=== PATIENT | male | born 1950 | race Caucasian/White ===

== ENCOUNTER 2016-09-02 10:42 | Emergency (ER) | payer SELFPAY ==
--- NOTE | 2016-09-02 11:46 | ER Document Report ---
ED Medical Screen (RME) - General Stated Complaint: BLACK URINE Mode of Arrival: Ambulatory Information source: Patient Notes: 66 y/o M presents to ED c/o dark urine since this morning. Reports has had intermittent headache over the last 3 weeks otherwise denies any other complaints. I have greeted and performed a rapid initial assessment of this patient. A comprehensive ED assessment and evaluation of the patient, analysis of test results and completion of the medical decision making process will be conducted by additional ED providers. TRAVEL OUTSIDE OF THE [place] IN LAST 30 DAYS: No - Related Data Allergies/Adverse Reactions: No Known Allergies Allergy (Unverified 10/25/11 13:43) Past Medical History Endocrine Medical History: Reports: Hx Diabetes Mellitus Type 2 Traumatic Medical History: Reports: Hx Traumatic Brain Injury - Immunizations Hx Diphtheria, Pertussis, Tetanus Vaccination: Yes Physical Exam - Vital signs Vitals: Temp Pulse Resp BP Pulse Ox 97.7 F 79 18 156/72 H 98 09/02/16 11:35 09/02/16 11:35 09/02/16 11:35 09/02/16 11:35 09/02/16 11:35 - General General appearance: Appears well, Alert In distress: None - Respiratory Respiratory status: No respiratory distress Course - Vital Signs Vital signs: Temp Pulse Resp BP Pulse Ox 97.7 F 79 18 156/72 H 98 09/02/16 11:35 09/02/16 11:35 09/02/16 11:35 09/02/16 11:35 09/02/16 11:35
[2016-09-02 12:40] LABS: HEMATOCRIT 47.4 % (37.9-51.0); HEMOGLOBIN 15.9 g/dL (13.5-17.0); HGB HCT DIFFERENCE 0.3; MEAN CORPUSCULAR HEMOGLOBIN 30.2 pg (27.0-33.4); MEAN CORPUSCULAR HGB CONC 33.6 g/dL (32.0-36.0); MEAN CORPUSCULAR VOLUME 90 fl (80-97); RED BLOOD COUNT 5.29 10^6/uL (4.35-5.55); RED CELL DISTRIBUTION WIDTH 14.6 % (11.5-14.0); WHITE BLOOD COUNT 23.6 10^3/uL (4.0-10.5)
[2016-09-02 12:59] LABS: ALANINE AMINOTRANSFERASE 32 U/L (21-72); ALKALINE PHOSPHATASE 79 U/L (38-126); ANION GAP 12 (5-19); ASPARTATE AMINO TRANSFERASE 25 U/L (17-59); BILIRUBIN,TOTAL 0.8 mg/dL (0.2-1.3); BLOOD UREA NITROGEN 23 mg/dL (7-20); CALCIUM 10.3 mg/dL (8.4-10.2); CARBON DIOXIDE 28 mmol/L (22-30); CHLORIDE 103 mmol/L (98-107); CREATININE RESULT 1.15 mg/dL (0.52-1.25); GLUCOSE 92 mg/dL (75-110); POTASSIUM 4.6 mmol/L (3.6-5.0); SODIUM 143.4 mmol/L (137-145); TOTAL PROTEIN 8.2 g/dL (6.3-8.2)
[2016-09-02 13:21] LABS: BAND NEUTROPHILS % (MANUAL) 1 % (3-5); BASOPHILS % (MANUAL) 0 % (0-2); EOSINOPHILS % (MANUAL) 0 % (0-6); LYMPHOCYTES % (MANUAL) 59 % (13-45); TOTAL CELLS COUNTED 100
[2016-09-02 13:22] LABS: POLYCHROMASIA SLIGHT; TOXIC GRANULATION SLIGHT; TOXIC VACUOLATION PRESENT
[2016-09-02 13:32] LABS: APPEARANCE,URINE CLEAR; BILIRUBIN,URINE NEGATIVE (NEGATIVE); GLUCOSE, URINE NEGATIVE (NEGATIVE); KETONES,URINE NEGATIVE (NEGATIVE); LEUKOCYTE ESTERASE,URINE NEGATIVE (NEGATIVE); NITRITE,URINE NEGATIVE (NEGATIVE); PROTEIN,URINE 100 mg/dL (NEGATIVE); URINE SPECIFIC GRAVITY 1.013; UROBILINOGEN,URINE NEGATIVE mg/dL (<2.0)
--- NOTE | 2016-09-02 15:52 | ER Document Report ---
ED General - General Chief Complaint: Urinary Problem Stated Complaint: BLACK URINE Mode of Arrival: Ambulatory Information source: Patient Notes: This is a 66-year-old male with a history of diabetes who presents to the ER for evaluation this morning after noticing that his urine is very dark, almost black in color. he states that his urine was normal yesterday. When he gave a urine sample here in the ER he states that the color was manager psychology and was a red tinge now not as black. Of note this is never happened before and he is not on any anticoagulant medications. He denies any dysuria. He has not had any abdominal or flank pain. He denies any fevers chills or recent illnesses. TRAVEL OUTSIDE OF THE [place] IN LAST 30 DAYS: No - Related Data Allergies/Adverse Reactions: No Known Allergies Allergy (Verified 09/02/16 11:47) Past Medical History - General Information source: Patient - Social History Smoking Status: Current Every Day Smoker Chew tobacco use (# tins/day): No Frequency of alcohol use: None Drug Abuse: None Family History: Reviewed & Not Pertinent Patient has suicidal ideation: No Patient has homicidal ideation: No Endocrine Medical History: Reports: Hx Diabetes Mellitus Type 2 Renal/ Medical History: Denies: Hx Peritoneal Dialysis Traumatic Medical History: Reports: Hx Traumatic Brain Injury Past Surgical History: Reports: Hx Appendectomy - Immunizations Hx Diphtheria, Pertussis, Tetanus Vaccination: Yes Review of Systems - Review of Systems Notes: REVIEW OF SYSTEMS: CONSTITUTIONAL : Denies fever, chills, or sweats. Denies recent illness. EENT: Denies eye, ear, throat, or mouth pain or symptoms. Denies nasal or sinus congestion. CARDIOVASCULAR: Denies chest pain. RESPIRATORY: Denies cough, cold, or chest congestion. Denies shortness of breath, difficulty breathing, or wheezing. GASTROINTESTINAL: Denies abdominal pain. Denies nausea, vomiting, or diarrhea. Denies constipation. Last BM: GENITOURINARY: As per history of present illness MUSCULOSKELETAL: Denies neck or back pain or joint pain or swelling. SKIN: Denies rash or skin lesions. HEMATOLOGIC : Denies easy bruising or bleeding. LYMPHATIC: Denies swollen, enlarged glands. NEUROLOGICAL: Denies altered mental status or loss of consciousness. Reports a sinus headache for the past 3 weeks which he states he usually gets at change of season. PSYCHIATRIC: Denies anxiety or stress or depression. ALL OTHER SYSTEMS REVIEWED AND NEGATIVE. Physical Exam - Vital signs Vitals: Temp Pulse Resp BP Pulse Ox 97.7 F 79 18 156/72 H 98 09/02/16 11:35 09/02/16 11:35 09/02/16 11:35 09/02/16 11:35 09/02/16 11:35 - Notes Notes: PHYSICAL EXAMINATION: GENERAL: Well-appearing, well-nourished and in no acute distress. Very pleasant and conversant. HEAD: Atraumatic, normocephalic. EYES: Pupils equal round and reactive to light, extraocular movements intact, sclera anicteric, conjunctiva are normal. ENT: nares patent, oropharynx clear without exudates. Moist mucous membranes. NECK: Normal range of motion, supple without lymphadenopathy LUNGS: Breath sounds clear to auscultation bilaterally and equal. No wheezes rales or rhonchi. HEART: Regular rate and rhythm without murmurs ABDOMEN: Soft, nontender, normoactive bowel sounds. No guarding, no rebound. No masses appreciated. EXTREMITIES: Normal range of motion, no pitting or edema. NEUROLOGICAL: Cranial nerves grossly intact. Normal speech. Motor strength 5 over 5 bilateral upper and lower extremity. Sensation intact. PSYCH: Normal mood, normal affect. SKIN: Warm, Dry, normal turgor, no rashes or lesions noted. Course - Re-evaluation Re-evalutation: 09/02/16 15:52 Patient has remained comfortable and pleasant in the emergency department. We discussed the CT results and the fact that there is no kidney stone. At this point with the leukocytosis and the urine results we'll treat him for hemorrhagic cystitis with antibiotics. He is to follow-up with his primary care physician. We discussed drinking plenty of fluids and return to the ER for any high fevers, persistent vomiting, worsening symptoms or concerns. He is very comfortable with this plan. - Vital Signs Vital signs: Temp Pulse Resp BP Pulse Ox 98.2 F 66 20 157/69 H 98 09/02/16 17:47 09/02/16 17:47 09/02/16 17:47 09/02/16 17:47 09/02/16 17:47 - Laboratory Result Diagrams: 09/02/16 12:16 09/02/16 12:16 Laboratory results interpreted by me: 09/02/16 09/02/16 09/02/16 12:16 12:16 12:16 WBC 23.6 H RDW 14.6 H Seg Neuts % (Manual) 38 L Band Neutrophils % 1 L Lymphocytes % (Manual) 59 H Monocytes % (Manual) 1 L Abs Neuts (Manual) 9.2 H Abs Lymphs (Manual) 14.2 H BUN 23 H Calcium 10.3 H Creatine Kinase Urine Protein 100 H Urine Blood LARGE H 09/02/16 12:16 WBC RDW Seg Neuts % (Manual) Band Neutrophils % Lymphocytes % (Manual) Monocytes % (Manual) Abs Neuts (Manual) Abs Lymphs (Manual) BUN Calcium Creatine Kinase 41 L Urine Protein Urine Blood Discharge - Discharge Clinical Impression: Hemorrhagic cystitis Leukocytosis Qualifiers: Leukocytosis type: unspecified Qualified Code(s): D72.829 - Elevated white blood cell count, unspecified Condition: Stable Disposition: HOME, SELF-CARE Additional Instructions: URINARY TRACT INFECTION: Your evaluation indicates that you have a urinary tract infection. This is due to germs growing in the bladder. This is a common problem. This infection usually responds quickly to antibiotics. Your antibiotic should be taken exactly as prescribed. Drink plenty of fluids -- three to four quarts a day. Occasionally, a bladder anesthetic will be prescribed to help stop the feeling of urgency until the antibiotic has a chance to clear the infection. This may cause your urine to be dark orange. Certain urine infections require a culture. If the doctor obtained a culture, the results will be back in two days. You should call to see if a change in treatment is needed. A repeat urinalysis after you finish treatment is often recommended. The physician will let you know if further testing is required. Call the doctor if you develop fever, chills, flank pain, inability to urinate, or blood in the urine. ANTIBIOTIC THERAPY: You have been given an antibiotic prescription. It's important that you take all the medication, unless instructed otherwise by your physician. Failure to complete the entire course can result in relapse of your condition. Common side effects of antibiotics include nausea, intestinal cramping, or diarrhea. Women may develop vaginal yeast infections, and babies can get yeast (thrush) in the mouth following the use of antibiotics. Contact your physician if you develop significant side effects from this medication. Allergy to this antibiotic can result in hives, wheezing, faintness, or itching. If symptoms of allergy occur, stop the medication and call the doctor. LEVOFLOXACIN: You have been given an antibacterial agent, levofloxacin (Levaquin). This medicine is not related to the penicillins, sulfas, cephalosporins, or tetracyclines. It is often given to patients who are allergic to these drugs. It has been chosen for you either because other drugs are not appropriate, or because of the nature of your problem. Levaquin should not be taken with antacids, as these can decrease its effectiveness. It can be taken without regard to meals. LEVAQUIN SHOULD NOT BE TAKEN BY CHILDREN, NURSING WOMEN, OR WOMEN. Although Levaquin is usually well-tolerated, common side effects can include nausea and diarrhea. Contact your doctor if you experience any unusual symptoms while on this medication, such as joint pain or swelling, shortness of breath, wheezing, faintness, or hives. FOLLOW-UP CARE: If you have been referred to a physician for follow-up care, call the physician s office for an appointment as you were instructed or within the next two days. If you experience worsening or a significant change in your symptoms, notify the physician immediately or return to the Emergency Department at any time for re-evaluation. Taking your antibiotics until they are all gone. Return to the emergency Department for fever greater than 100.4 or any worsening symptoms or concerns. It is important he follow-up with her primary care physician in one week. Prescriptions: Levofloxacin [Levaquin 750 mg Tablet] 750 mg PO DAILY #5 tablet
[2016-09-02] MEDS ORDERED: ACETAMINOPHEN 325 MG TABLET PO ONE (15:57)
[2016-09-02] MEDS ORDERED: LEVOFLOXACIN 750 MG TABLET PO ONE (17:25)
[2016-09-02 17:49] VITALS: BP 157/69
== END 2016-09-02 17:47 | disposition home or self-care (01) ==
LOC: ER 10:42
DX: N30.90 Cystitis, unspecified without hematuria (principal); D72.829 Elevated white blood cell count, unspecified; F17.200 Nicotine dependence, unspecified, uncomplicated; E11.9 Type 2 diabetes mellitus without complications; Z87.820 Personal history of traumatic brain injury
CPT/HCPCS: 36415; 76380; 80053; 81001; 82550; 85025; 99284

== ENCOUNTER 2016-09-23 17:26 | Inpatient (IN) | payer SELFPAY ==
--- NOTE | 2016-09-23 17:35 | ER Document Report ---
ED Neuro Symptoms/Deficit - General Chief Complaint: S/S of Possible Stroke Stated Complaint: STROKE LIKE SYMPTOMS Notes: The patient is a 66-year-old male, past medical history "possible leukemia" ( never followed up with Oncology when told 2 years ago), presents with confusion and arm weakness that started when he woke up this morning. He is also having difficulty swallowing. Last night, when he went to bed at 2200, he was alert and had no symptoms. His daughter called EMS and patient was brought to the emergency room for concern about stroke. Patient states he has a dull frontal headache for the past several weeks, but denies blurry vision, numbness, tingling, fevers, neck stiffness, chest pain, shortness of breath or ataxia. TRAVEL OUTSIDE OF THE [place] IN LAST 30 DAYS: No - Related Data Allergies/Adverse Reactions: No Known Allergies Allergy (Verified 09/02/16 11:47) Past Medical History - General Information source: Patient, Relative - Daughter, Emergency Med Personnel - Social History Smoking Status: Current Every Day Smoker Family History: Reviewed & Not Pertinent Endocrine Medical History: Reports: Hx Diabetes Mellitus Type 2 Renal/ Medical History: Denies: Hx Peritoneal Dialysis Traumatic Medical History: Reports: Hx Traumatic Brain Injury Past Surgical History: Reports: Hx Appendectomy - Immunizations Hx Diphtheria, Pertussis, Tetanus Vaccination: Yes Review of Systems - Review of Systems Notes: REVIEW OF SYSTEMS: CONSTITUTIONAL: -fevers, -chills EENT: -eye pain, +difficulty swallowing, -nasal congestion CARDIOVASCULAR: -chest pain, -syncope. RESPIRATORY: -cough, -SOB GASTROINTESTINAL: -abdominal pain, - nausea, -vomiting, -diarrhea GENITOURINARY: -dysuria, -hematuria MUSCULOSKELETAL: -back pain, -neck pain SKIN: -rash or skin lesions. HEMATOLOGIC: -easy bruising or bleeding. LYMPHATIC: -swollen, enlarged glands. NEUROLOGICAL: +confusion, +B/L arm and leg weakness, -numbness PSYCHIATRIC: -anxiety, -depression. ALL OTHER SYSTEMS REVIEWED AND NEGATIVE. Physical Exam - Vital signs Vitals: Resp Pulse Ox 25 H 93 09/23/16 17:54 09/23/16 17:54 - Notes Notes: PHYSICAL EXAMINATION: GENERAL: Well-appearing, well-nourished and in no acute distress. HEAD: Atraumatic, normocephalic. EYES: Pupils equal round and reactive to light, extraocular movements intact, sclera anicteric, conjunctiva are normal. ENT: nares patent, oropharynx clear without exudates. Moist mucous membranes. NECK: Normal range of motion, supple without lymphadenopathy, no neck stiffness LUNGS: Breath sounds clear to auscultation bilaterally and equal. No wheezes rales or rhonchi. HEART: Regular rate and rhythm without murmurs ABDOMEN: Soft, nontender, normoactive bowel sounds. No guarding, no rebound. No masses appreciated. EXTREMITIES: Normal range of motion, no pitting or edema. No cyanosis. NEUROLOGICAL: Cranial nerves grossly intact. Normal speech, slow to respond. Cannot answer current month or current age. 4/5 strength in all 4 extremities. No sensory changes. SKIN: Warm, Dry, normal turgor, no rashes or lesions noted. Course - Re-evaluation Re-evalutation: Patient with acute change in mental status that started 20 hours prior to arrival. Patient activated as a stroke alert by EMS. On arrival to the emergency room, he went immediately to CAT scan, which did not show a bleed. Labs show a leukocytosis with 38 WBCs, which is higher than his prior values. Chest x-ray and urinalysis do not show any evidence for infection. Abdomen is soft and nontender. LP completed for concern about meningitis. Patient does not appear toxic to suggest bacterial meningitis, but viral meningitis is still a possibility. Viral panel from CSF sent. Patient has no prior psych disorder and he is independent at baseline. If this is a CVA, patient's NIH stroke scale is 7 and ABCD2 score is 4. ASA given. Pt will require admission for further evaluation and treatment of his leukocytosis and acute altered mental status with diffuse weakness. 09/23/16 23:[address] Chey Roth about leukocytosis and possibility of acute leukemia, but she says this is is likely related to CLL and does not require any acute treatment at this time. Spoke to Dr. Ortiz and he will see patient. - Vital Signs Vital signs: Temp Pulse Resp BP Pulse Ox 98.2 F 67 18 187/99 H 93 09/23/16 23:21 09/23/16 21:45 09/23/16 22:01 09/23/16 22:01 09/23/16 22:01 - Laboratory Result Diagrams: 09/23/16 17:45 09/23/16 18:49 Laboratory results interpreted by me: 09/23/16 09/23/16 09/23/16 17:45 18:49 19:30 WBC 38.5 H* RBC 5.65 H RDW 14.3 H Band Neutrophils % 2 L Lymphocytes % (Manual) 46 H Abs Neuts (Manual) 19.3 H Abs Lymphs (Manual) 17.7 H Abs Monocytes (Manual) 1.5 H BUN 28 H Glucose 125 H Creatine Kinase 49 L Urine Protein 100 H CSF Glucose 09/23/16 21:38 WBC RBC RDW Band Neutrophils % Lymphocytes % (Manual) Abs Neuts (Manual) Abs Lymphs (Manual) Abs Monocytes (Manual) BUN Glucose Creatine Kinase Urine Protein CSF Glucose 81 H - Diagnostic Test Radiology reviewed: Image reviewed, Reports reviewed Radiology results interpreted by me: CXR: NAD Procedures - Lumbar Puncture Lumbar puncture Consent obtained: Yes - From Daughter (POA) Lumbar puncture pre-procedure: Sterile PPE donned, Betadine prep applied, Chloraprep applied, Sterile drapes applied Patient position: Sitting Needle size: 18 Lumbar puncture location: L4-L5 Anesthetic type: 1% Lidocaine mL's of anesthetic: 5 Amount/type of drainage: 4, clear fluid Number of attempts: 3 Complications: No Critical Care Note - Critical Care Note Total time excluding time spent on procedures (mins): 65 Discharge - Discharge Clinical Impression: Altered mental status Qualifiers: Altered mental status type: disorientation Qualified Code(s): R41.0 - Disorientation, unspecified TIA (transient ischemic attack) Qualifiers: Transient cerebral ischemia type: unspecified Qualified Code(s): G45.9 - Transient cerebral ischemic attack, unspecified Condition: Stable Disposition: ADMITTED INPATIENT Admitting Provider: [facility] Unit Admitted: [facility]
--- NOTE | 2016-09-23 18:33 | ER Document Report ---
ED NIH Stroke Scale - NIH Stroke Scale When completed:: Before Alteplase *: 1. NIH scale should be completed with appropriate accompanying assessment tools. *: 2. The NIH should reflect what the patient is capable of doing and should not be coached by the clinician. 1a. Level of Consciousness: 0=Alert;keenly responsive -: 1=Drowsy -: 2=Obtunded -: 3=Coma/unresponsive or reflex to noxious stimuli. 1a. Responses: 0 1b. Orientation Questions: a. What month is it? -: b. How old are you? -: 0=Answers both questions correctly. -: 1=Answers one question correctly or patient is intubated or has orotracheal trauma. -: 2=Answers neither question correctly. 1b. Responses: 2 1c. Response to commands: a. Open and close eyes? -: b. Cigar Packing Examiner and release hand? -: Credit is given despite weakness. Demonstration of task is permitted. Substitute command if hands cannot be used. -: 0=Performs both tasks correctly -: 1=Performs one task correctly -: 2=Performs neither task correctly 1c. Responses: 0 2. Gaze: Establish eye contact and instruct patient to "Follow my finger" -: 0=Normal -: 1=Partial gaze palsy. Gaze is abnormal in one or both eyes, but where forced deviation or total gaze paresis is not present. -: 2=Forced deviation or total gaze paresis. 2. Responses: 0 3. Visual Chamberlain: Sees fingers in all four quadrants. -: 0=No visual loss. -: 1=Partial hemianopsia. -: 2=Complete hemianopsia. -: 3=Bilateral hemianopsia (including Cortical blindness) 3. Responses: 0 4. Facial Movement: Instruct patient to: -: a. Show me your teeth -: b. Raise your eyebrows -: c. Close your eyes -: d. Smile -: 0=Normal symmetrical movement -: 1=Minor paralysis (flattened nasolabial fold, asymmetry on smiling). -: 2=Partial paralysis (total or near total paralysis of lower face). -: 3=Complete paralysis of upper and lower face 4. Responses: 0 5. Motor functions (left arm): Alternate sides and extend each arm with palms down (90 degrees if sitting or 45 degrees for supine). -: 0=No drift;limb holds for full 10 seconds. -: 1=Drift; limb holds but drifts down before full 10 seconds, but does not hit bed. -: 2=Some effort against gravity; limb cannot get to or maintain position. -: 3=No effort against gravity; limb falls. -: 4=No movement. -: UN=Amputation, joint fusion, explain in comments. 5. Responses (left arm): 1 5. Motor Functions (right arm): Alternate sides and extend each arm with palms down (90 degrees if sitting or 45 degrees for supine). -: 0=No drift;limb holds for full 10 seconds. -: 1=Drift; limb holds but drifts down before full 10 seconds, but does not hit bed. -: 2=Some effort against gravity; limb cannot get to or maintain position. -: 3=No effort against gravity; limb falls. -: 4=No movement. -: UN=Amputation, joint fusion, explain in comments. 5. Responses (right arm): 1 6. Motor Functions (left leg): With patient lying supine, alternate sides and extend each leg (30 degrees always while supine). -: 0=No drift, leg holds position for full 5 seconds -: 1=Drift; leg falls before full 5 seconds but does not hit bed. -: 2=Some effort against gravity, leg falls to bed but some effort against gravity. -: 3=No effort against gravity, leg falls to bed immediately. -: 4=No movement. -: UN=Amputation, joint fusion; explain in comments. 6. Responses (left leg): 1 6. Motor Functions (right leg): With patient lying supine, alternate sides and extend each leg (30 degrees always while supine). -: 0=No drift, leg holds position for full 5 seconds -: 1=Drift; leg falls before full 5 seconds but does not hit bed. -: 2=Some effort against gravity, leg falls to bed but some effort against gravity. -: 3=No effort against gravity, leg falls to bed immediately. -: 4=No movement. -: UN=Amputation, joint fusion; explain in comments. 6. Responses (right leg): 1 7. Limb Ataxia: With eyes open instruct patient to: -: a. "Touch your finger to your nose". -: b. "Touch your heel to your bryson" -: 0=Absent -: 1=Present in one limb. -: 2=Present in two limbs. -: UN=Amputation or joint fusion; explain in comments. 7. Responses: 0 8. Sensory: Test sensation using pinprick or noxious stimuli. Test as many body parts as possible. -: 0=Normal;no sensory loss -: 1=Mile to moderate sensory loss (patient feels pin prick but is less sharp on affected side). -: 2=Severe or total sensory loss. 8. Responses: 0 9. Best Language: Instruct patient to: -: a. "Describe what you see in this picture." -: b. "Name the items in this picture." -: c. "Read these sentences." -: 0=No aphasia, normal -: 1=Mild to moderate aphasia. -: 2=Severe aphasia -: 3=Mute, global aphasia, no usable speech or auditory comprehension. 9. Responses: 0 10. Articulation, Dysarthia: Instruct patient to: -: "Read these words" or "Repeat these words" -: 0=Normal -: 1=Mild to moderate; patient may slur some words but can be understood without difficulty. -: 2=Severe; patients speech so slurred as to be unintelligible in the absence of dysphasia. -: UN=Intubated or other physical barrier, explain in comments. 10. Responses: 0 11. Extinction or inattention: 0=No abnormality -: 1= Visual, tactile, auditory, spatial, or personal inattention or extinction to bilateral simulation in one or the sensory modalities. -: 2=Profound mirlande-inattention or mirlande-inattention to more than one modality; does not recognize own hand. 11. Responses: 1 Total Score: 7
[2016-09-23 18:51] LABS: PROTHROMBIN TIME 13.2 SEC (11.4-15.4)
[2016-09-23 18:57] LABS: HEMATOCRIT 49.8 % (37.9-51.0); HEMOGLOBIN 16.7 g/dL (13.5-17.0); HGB HCT DIFFERENCE 0.3; MEAN CORPUSCULAR HEMOGLOBIN 29.5 pg (27.0-33.4); MEAN CORPUSCULAR HGB CONC 33.5 g/dL (32.0-36.0); MEAN CORPUSCULAR VOLUME 88 fl (80-97); RED BLOOD COUNT 5.65 10^6/uL (4.35-5.55); RED CELL DISTRIBUTION WIDTH 14.3 % (11.5-14.0)
[2016-09-23] MEDS ORDERED: NORMAL SALINE 1000 ML 1,000 ML IV ONE (19:01)
[2016-09-23] MEDS ORDERED: KETOROLAC TROMETHAMINE INJ/PF 30 MG/1 ML SDV IV ONE (19:01)
[2016-09-23 19:14] LABS: BAND NEUTROPHILS % (MANUAL) 2 % (3-5); BASOPHILS % (MANUAL) 0 % (0-2); EOSINOPHILS % (MANUAL) 0 % (0-6); LYMPHOCYTES % (MANUAL) 46 % (13-45); TOTAL CELLS COUNTED 100
[2016-09-23 19:15] LABS: RBC MORPHOLOGY COMMENT NORMO-CYTIC/CHROMIC
[2016-09-23 19:18] LABS: WHITE BLOOD COUNT 38.5 10^3/uL (4.0-10.5)
[2016-09-23 19:18] LABS: ANION GAP 14 (5-19); BLOOD UREA NITROGEN 28 mg/dL (7-20); CALCIUM 10.1 mg/dL (8.4-10.2); CARBON DIOXIDE 26 mmol/L (22-30); CHLORIDE 99 mmol/L (98-107); CREATINE KINASE 49 U/L (55-170); CREATININE RESULT 1.08 mg/dL (0.52-1.25); GLUCOSE 125 mg/dL (75-110); POTASSIUM 4.3 mmol/L (3.6-5.0)
[2016-09-23 20:56] LABS: AMORPHOUS SEDIMENT,URINE TRACE /HPF; APPEARANCE,URINE CLOUDY; BILIRUBIN,URINE NEGATIVE (NEGATIVE); GLUCOSE, URINE NEGATIVE (NEGATIVE); KETONES,URINE NEGATIVE (NEGATIVE); LEUKOCYTE ESTERASE,URINE NEGATIVE (NEGATIVE); NITRITE,URINE NEGATIVE (NEGATIVE); PROTEIN,URINE 100 mg/dL (NEGATIVE); UROBILINOGEN,URINE NEGATIVE mg/dL (<2.0)
--- NOTE | 2016-09-23 21:36 | EKG REPORT ---
SEVERITY:- ABNORMAL ECG - SINUS RHYTHM LEFT ATRIAL ABNORMALITY : Confirmed by: Samanta Sneed 23-Sep-2016 21:35:51
[2016-09-23] MEDS ORDERED: ONDANSETRON HCL INJ/PF 4 MG/2 ML SDV ONE (22:08)
[2016-09-23] MEDS ORDERED: ONDANSETRON HCL INJ/PF 4 MG/2 ML SDV IV ONE (22:16)
[2016-09-23 22:29] LABS: GLUCOSE,CSF 81 mg/dL (40-70)
[2016-09-23 22:38] LABS: APPEARANCE ALL TUBES CLEAR
[2016-09-23 22:39] LABS: RBC SIDE 1 428; RBC SIDE 2 400
[2016-09-23 22:40] LABS: RBC DILUENT USED NONE USED; RBC DILUTION FACTOR 1; TOTAL RBC SQUARES COUNTED 225
[2016-09-23 22:41] LABS: WHITE BLOOD CELL,CSF 3 /uL (0-5)
[2016-09-23 22:45] LABS: APPEARANCE ALL TUBES CLEAR; RBC SIDE 1 29
[2016-09-23 22:46] LABS: RBC DILUENT USED NONE USED; RBC DILUTION FACTOR 1; RBC SIDE 2 27; TOTAL RBC SQUARES COUNTED 225
[2016-09-23 22:47] LABS: WHITE BLOOD CELL,CSF 2 /uL (0-5)
[2016-09-23] MEDS ORDERED: ASPIRIN 81 MG TABLET, CHEWABLE PO ONE (23:06)
[2016-09-23 23:47] LABS: URINE BARBITURATES SCREEN NEGATIVE; URINE METHADONE SCREEN NEGATIVE; URINE OPIATES LOW NEGATIVE; URINE PHENCYCLIDINE SCREEN NEGATIVE
[2016-09-23 23:54] LABS: ADD ON TESTING BLD IN LAB ACKNOWLEDGE
[2016-09-24 00:15] LABS: ALANINE AMINOTRANSFERASE 28 U/L (21-72); ALBUMIN 4.9 g/dL (3.5-5.0); ALKALINE PHOSPHATASE 92 U/L (38-126); ASPARTATE AMINO TRANSFERASE 21 U/L (17-59); BILIRUBIN,TOTAL 0.9 mg/dL (0.2-1.3); TOTAL PROTEIN 8.1 g/dL (6.3-8.2)
[2016-09-24 00:47] LABS: CREATINE KINASE MB 1.83 ng/mL (<4.55)
[2016-09-24 00:51] LABS: TROPONIN I 0.037 ng/mL
[2016-09-24] MEDS ORDERED: DEXTROSE 50%-WATER 25 GM/50 ML DISP.SYRIN IV PRN ×2 (01:48)
[2016-09-24] MEDS ORDERED: INSULIN LISPRO 100 UNIT/ML 3 ML VIAL SUBCUT PRN (01:48)
[2016-09-24] MEDS ORDERED: GLUCAGON,HUMAN RECOMB 1 MG INJ IM PRN (01:48)
[2016-09-24] MEDS ORDERED: DEXTROSE 40% GEL 15 GM TUBE PO PRN ×2 (01:48)
[2016-09-24] MEDS ORDERED: ACETAMINOPHEN 650 MG SUPP.RECT PR PRN (01:50)
[2016-09-24] MEDS ORDERED: ACYCLOVIR SODIUM INJ/PF 500 MG/10 ML SDV IV SCH (02:00)
[2016-09-24] MEDS ORDERED: PHARMACY COMMUNICATION ORDER MC NR (02:15)
[2016-09-24] MEDS ORDERED: ACYCLOVIR SODIUM INJ/PF 500 MG/10 ML SDV IV PRN (02:26)
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
[2016-09-24] MEDS ORDERED: ACYCLOVIR SODIUM IV SCH ×2 (03:00→10:00)
[2016-09-24] MEDS ORDERED: NORMAL SALINE IV SCH ×2 (03:00→10:00)
[2016-09-24] MEDS: NORMAL SALINE 1000 ML 1,000 ML IV PRN ×2 (03:01→10:29)
[2016-09-24 07:14] LABS: HEMATOCRIT 42.9 % (37.9-51.0); HEMOGLOBIN 14.7 g/dL (13.5-17.0); HGB HCT DIFFERENCE 1.2; MEAN CORPUSCULAR HEMOGLOBIN 30.1 pg (27.0-33.4); MEAN CORPUSCULAR HGB CONC 34.1 g/dL (32.0-36.0); MEAN CORPUSCULAR VOLUME 88 fl (80-97); RED BLOOD COUNT 4.87 10^6/uL (4.35-5.55); RED CELL DISTRIBUTION WIDTH 14.4 % (11.5-14.0); WHITE BLOOD COUNT 26.8 10^3/uL (4.0-10.5)
[2016-09-24 07:24] LABS: CHOLESTEROL 187.94 mg/dL (0-200); Direct HDL 45 mg/dL (>40); TRIGLYCERIDES 96 mg/dL (<150)
[2016-09-24 07:35] LABS: DIRECT LDL 115 mg/dL (<100)
[2016-09-24 07:39] LABS: BASOPHILS % (MANUAL) 0 % (0-2); EOSINOPHILS % (MANUAL) 0 % (0-6); LYMPHOCYTES % (MANUAL) 32 % (13-45); TOTAL CELLS COUNTED 100
[2016-09-24 07:40] LABS: ANISOCYTOSIS SLIGHT; TOXIC GRANULATION SLIGHT
[2016-09-24 07:46] LABS: HSV SOURCE CSF
[2016-09-24] MEDS ORDERED: ENOXAPARIN SODIUM INJ 40 MG/0.4 ML DISP.SYRIN SUBCUT SCH (08:00)
--- NOTE | 2016-09-24 09:05 | Progress Note ---
Provider Note Provider Note: 09/24/2016: 2:46 AM this morning, I discussed patient once again with Dr. Crystal, salesforce consultant adult neurologist at [facility], following my conversation with daughter. She suggested discussing patient with neurosurgery at that time. 3:05 AM this morning, I spoke by phone with Dr. Osborn, on-call neurosurgeon at [facility]. Patient was discussed in detail. He agreed with plans for MRI of the cervical spine with subsequent MRI of the brain if cervical spine imaging unremarkable. Follow-up discussion with neurosurgery once the images are back. Also recommended contacting neurosurgery should patient's neurologic status worsen. Subsequent evaluation of the patient in the emergency room revealed slight worsening of his overall neurologic status in the form of upper and lower extremity strength. Maintaining airway well. Anxious but cooperative. Spoke with transfer center at [facility] at 4:15 AM this morning, requesting to speak once again with Dr. Osborn, concerning patient's gradual progression in his weakness. Call back again at 4:55 AM this morning when had not heard back from neurosurgeon. 5:07 AM this morning, I spoke with [facility] transfer center and requested to speak with their neurosurgeon. 5:37 AM this morning I was contacted by their transfer center, stating that neurosurgeon would be paged. 5:55 AM this morning, I spoke with SAAD Mott for salesforce consultant neurosurgeon [facility]. Patient was discussed in detail, including my impression that his level of weakness had progressed. He saw no need to transfer the patient that time, and felt that MR studies should be obtained first. I did request that he please discuss the patient at that time with the salesforce consultant neurosurgeon. Examination of the patient at the bedside at that time revealed no change in his status from my above repeat exam in the emergency room. He was awake and alert and maintaining his airway well. Was able to move from a supine to lateral decubitus position slowly but without undue difficulty. 6:28 AM this morning I discussed the patient once again with Dr. Osborn, on- call neurosurgeon at [facility]. He did not feel transfer was warranted at that time, but did recommend obtaining MRI of the C-spine without contrast first. If This was negative, obtain MRI of the brain without contrast. If This study was likewise negative, he felt patient would not require neurosurgical input, instead neurology input. He Reiterated Dr. Crystal's feeling that steroids were not warranted. Patient had been transferred earlier to the intensive care unit, for more close monitoring of the patient, including his respiratory status. Patient discussed in detail with daytime hospitalist team. 95 minutes critical care time spent in evaluation and management of patient, including chart review, multiple discussions with nursing staff, and above multiple discussions with outside consultants.
[2016-09-24] MEDS ORDERED: LORAZEPAM INJ 2 MG/1 ML VIAL IV PRN ×2 (09:29→09:58)
--- NOTE | 2016-09-24 09:54 | PDOC PROGRESS REPORT ---
Subjective Progress Note for:: 09/24/16 Subjective:: Patient is very confused this morning He still complaining of weakness in the left lower extremity; is able to sit up ; he is awake He has no chest pain no shortness of breath no abdominal pain nausea vomiting He has mild headache Is scheduled for MRI Physical Exam Vital Signs: Temp Pulse Resp BP Pulse Ox 97.8 F 90 20 177/89 H 93 09/24/16 08:00 09/24/16 08:00 09/24/16 08:08 09/24/16 08:08 09/24/16 08:08 Intake & Output 09/23/16 09/24/16 09/25/16 00:59 00:59 00:59 Intake Total 500 Output Total 240 Balance 260 Weight 97.6 kg General appearance: PRESENT: no acute distress, well-developed, well-nourished Head exam: PRESENT: atraumatic, normocephalic Eye exam: PRESENT: conjunctiva pink, EOMI, PERRLA. ABSENT: scleral icterus Ear exam: PRESENT: normal external ear exam Mouth exam: PRESENT: moist, tongue midline, other - Tongue appears swollen It is also ecchemotic and tender on palpation Appears that there is a bite gemma Neck exam: ABSENT: carotid bruit, JVD, lymphadenopathy, thyromegaly Respiratory exam: PRESENT: clear to auscultation cher. ABSENT: rales, rhonchi, wheezes Cardiovascular exam: PRESENT: RRR. ABSENT: diastolic murmur, rubs, systolic murmur Pulses: PRESENT: normal dorsalis pedis pul Vascular exam: PRESENT: normal capillary refill GI/Abdominal exam: PRESENT: normal bowel sounds, soft. ABSENT: distended, guarding, mass, organolmegaly, rebound, tenderness Rectal exam: PRESENT: deferred Extremities exam: PRESENT: full ROM. ABSENT: calf tenderness, clubbing, pedal edema Neurological exam: PRESENT: alert, awake, oriented to person, oriented to place , oriented to time, oriented to situation, other - Weakness left lower extremity more so than the right lower extremity Psychiatric exam: PRESENT: flat affect. ABSENT: homicidal ideation, suicidal ideation Skin exam: PRESENT: dry, intact, warm. ABSENT: cyanosis, rash Results Laboratory Results: 09/24/16 07:02 03/14/17 03/14/17 03/14/17 07:02 07:02 07:02 WBC 26.8 H RBC 4.87 Hgb 14.7 Hct 42.9 MCV 88 MCH 30.1 MCHC 34.1 RDW 14.4 H Plt Count 137 L Seg Neutrophils % Not Reportable Lymphocytes % Not Reportable Monocytes % Not Reportable Eosinophils % Not Reportable Basophils % Not Reportable Absolute Neutrophils Not Reportable Absolute Lymphocytes Not Reportable Absolute Monocytes Not Reportable Absolute Eosinophils Not Reportable Absolute Basophils Not Reportable Triglycerides 96 Cholesterol 187.94 LDL Cholesterol Direct 115 H VLDL Cholesterol 19.0 HDL Cholesterol 45 TSH 1.56 09/24/16 07:02 Troponin I 0.029 EKG Comments: SINUS RHYTHM [SHIRA] . LEFT ATRIAL ABNORMALITY Impressions: Chest X-Ray 09/23/16 00:00 IMPRESSION: NO ACUTE RADIOGRAPHIC FINDING IN THE CHEST. NO SIGNIFICANT CHANGE FROM PRIOR STUDY. Head CT 09/23/16 00:00 IMPRESSION: NORMAL BRAIN CT WITHOUT CONTRAST. Assessment & Plan - Diagnosis (1) Acute encephalopathy Is this a current diagnosis for this admission?: YesPlan: Patient's mentation mental status is improved as per the daughter He is still confused at times He appears quite anxious The will need to be sedated prior to MRI Encephalopathy be secondary to TIA-like episode (2) Leukocytosis Qualifiers: Leukocytosis type: unspecified Qualified Code(s): D72.829 - Elevated white blood cell count, unspecified Is this a current diagnosis for this admission?: YesPlan: Elevated white blood count Patient in the past was told "he had leukemia" Dr. Roth evaluated the patient and further tests are pending (3) Tongue swelling Is this a current diagnosis for this admission?: YesPlan: Likely secondary to trauma We will give the patient clindamycin by mouth to prevent infection (4) Weakness of both lower extremities Is this a current diagnosis for this admission?: YesPlan: Left lower extremity appears weaker than the right Workup is in progress MRI C-spine MRI head pending (5) Hypertension Is this a current diagnosis for this admission?: YesPlan: We will treat the patient with small doses of Norvasc (6) DVT prophylaxis Is this a current diagnosis for this admission?: Yes (7) Full code status Is this a current diagnosis for this admission?: YesPlan: Daughter is surrogate healthcare decision-maker - Time Critical Time spent with patient: 25-34 minutes
[2016-09-24] MEDS ORDERED: AMLODIPINE BESYLATE 5 MG TABLET PO SCH ×2 (10:00→18:00)
[2016-09-24] MEDS: ACYCLOVIR SODIUM IV SCH ×2 (10:24→17:56)
[2016-09-24] MEDS: NORMAL SALINE IV SCH ×2 (10:24→17:56)
[2016-09-24 12:47] LABS: PATH REVIEW PATHOLOGIST REVIEWED
[2016-09-24 12:48] LABS: PATH REVIEW PATHOLOGIST REVIEWED
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
[2016-09-24] MEDS: HYDRALAZINE HCL INJ/PF 20 MG/1 ML SDV IV PRN ×2 (17:55→22:39)
[2016-09-24] MEDS: NYSTATIN/DEXAMETH/DIPHEN SUSP 120 ML PO SCH ×2 (17:57→22:43)
[2016-09-24] MEDS: AMLODIPINE BESYLATE 5 MG TABLET PO SCH (20:10)
[2016-09-24] MEDS: CLINDAMYCIN HCL 150 MG CAPSULE PO SCH (22:39)
[2016-09-24] MEDS: ENOXAPARIN SODIUM INJ 40 MG/0.4 ML DISP.SYRIN SUBCUT SCH (22:45)
[2016-09-25] MEDS: ACYCLOVIR SODIUM IV SCH ×2 (01:18→10:33)
[2016-09-25] MEDS: NORMAL SALINE IV SCH ×2 (01:18→10:33)
[2016-09-25] MEDS: CLINDAMYCIN HCL 150 MG CAPSULE PO SCH ×3 (06:22→21:52)
[2016-09-25] MEDS: HYDRALAZINE HCL INJ/PF 20 MG/1 ML SDV IV PRN ×3 (06:26→14:37)
[2016-09-25 06:39] LABS: IMMUNOGLOBULIN A 175 mg/dL (61-437); IMMUNOGLOBULIN G 978 mg/dL (700-1600)
[2016-09-25 07:20] LABS: IMMUNOGLOBULIN M 46 mg/dL (20-172)
[2016-09-25] MEDS: ASPIRIN 325 MG TABLET, ENT COATED PO SCH (10:33)
[2016-09-25] MEDS: NYSTATIN/DEXAMETH/DIPHEN SUSP 120 ML PO SCH ×4 (10:33→22:00)
[2016-09-25] MEDS: AMLODIPINE BESYLATE 5 MG TABLET PO SCH (10:33)
--- NOTE | 2016-09-25 14:21 | XCELERA REPORT ---
[address] [address] Transthoracic Echocardiogram Report Name: FARZANEH MANN Age: 66 yrs Gender: Male : 1950 Patient Status: Inpatient Patient Location: [id number]\S\333\S\A Study Date: 09/25/2016 09:17 AM Height: 70 in Weight: 215 lb BSA: 2.2 m2 Procedure: A complete two-dimensional transthoracic echocardiogram was performed (2D, M-mode, spectral and color flow Doppler). The study was technically difficult with many images being suboptimal in quality. Reason For Study: TIA Ordering Physician: GELY SENIOR Performed By: Madeline Damon Interpretation Summary The Ejection Fraction estimate is 45-50% Left ventricular systolic function is mildly reduced. Doppler measurements suggest pseudonormalized left ventricular relaxation, which is associated with grade II/IV or mild to moderate diastolic dysfunction The left ventricle is grossly normal size. There is mild concentric left ventricular hypertrophy. Regional wall motion abnormalities cannot be excluded due to limited visualization. The right ventricular systolic function is normal. The left atrium is mildly dilated. The right atrium is normal. There is a trace amount of mitral regurgitation There is no mitral valve stenosis. There is no aortic valve stenosis No aortic regurgitation is present. There is a trace or physiologic amount of tricuspid regurgitation Tricuspid regurgitation jet envelope not well defined to measure RV systolic pressure accurately. The aortic root is not well visualized. The inferior vena cava appeared normal and decreased > 50% with respiration (RAP 5-10 mmHg) There is no pericardial effusion. MMode/2D Measurements \T\ Calculations RVDd: 3.2 cm LVIDd: 5.4 cmFS: 27.1 % Ao root diam: 3.4 cm IVSd: 1.1 cm LVIDs: 3.9 cmEDV(Teich): 139.1 ml LVPWd: 1.1 cmESV(Teich): 66.3 ml Ao root area: 9.3 cm2 EF(Teich): 52.3 % LA dimension: 4.2 cm LVOT diam: 2.4 cm LVOT area: 4.5 cm2 Doppler Measurements \T\ Calculations MV E max sal: MV P1/2t max sal: Ao V2 max: LV V1 max P.2 cm/sec 101.7 cm/sec 93.8 cm/sec 1.5 mmHg MV A max sal: MV P1/2t: 36.8 msec Ao max PG: LV V1 max: 71.6 cm/sec MVA(P1/2t): 6.0 cm2 3.5 mmHg 61.7 cm/sec MV E/A: 1.4 MV dec slope: ERIN(V,D): 809.9 cm/sec2 3.0 cm2 PA V2 max: TR max sal: 71.6 cm/sec 183.8 cm/sec PA max P.0 mmHg TR max P.5 mmHg Left Ventricle The left ventricle is grossly normal size. There is mild concentric left ventricular hypertrophy. Left ventricular systolic function is mildly reduced. The Ejection Fraction estimate is 45-50%. Doppler measurements suggest pseudonormalized left ventricular relaxation, which is associated with grade II/IV or mild to moderate diastolic dysfunction. Regional wall motion abnormalities cannot be excluded due to limited visualization. Right Ventricle The right ventricle is grossly normal size. There is normal right ventricular wall thickness. The right ventricular systolic function is normal. Atria The right atrium is normal. The left atrium is mildly dilated. Interarterial septum not well visualized and not well dopplered. Cannot comment on ASD/PFO presence. Mitral Valve The mitral valve leaflets are sclerotic, but show no functional abnormalities. There is no mitral valve stenosis. There is a trace amount of mitral regurgitation. Aortic Valve The aortic valve is not well visualized secondary to technical limitations. There is no aortic valve stenosis. No aortic regurgitation is present. Tricuspid Valve The tricuspid valve is not well visualized secondary to technical limitations. There is no tricuspid stenosis. There is a trace or physiologic amount of tricuspid regurgitation. Tricuspid regurgitation jet envelope not well defined to measure RV systolic pressure accurately. Pulmonic Valve The pulmonic valve is not well visualized. Great Vessels The aortic root is not well visualized. The inferior vena cava appeared normal and decreased > 50% with respiration (RAP 5-10 mmHg). Effusions There is no pericardial effusion. : GELY SENIOR > Samanta Sneed
[2016-09-25] MEDS: RAMIPRIL 10 MG CAPSULE PO SCH (16:59)
[2016-09-25] MEDS: METOPROLOL TARTRATE 50 MG TABLET PO SCH (16:59)
--- NOTE | 2016-09-25 17:46 | PDOC PROGRESS REPORT ---
Subjective Progress Note for:: 09/25/16 Subjective:: Patient is feeling a lot better but his blood pressure is quite elevated Initiated treatment with metoprolol and ramipril Patient was supposed to be discharged. Became extremely anxious somewhat restless We decided to keep the patient overnight for observation 1 more day Echocardiogram was performed and it showed mild systolic dysfunction with an EF of 45% Physical Exam Vital Signs: Temp Pulse Resp BP Pulse Ox 98.3 F 94 20 198/84 H 94 09/25/16 15:48 09/25/16 15:48 09/25/16 13:00 09/25/16 15:48 09/25/16 15:48 Intake & Output 09/24/16 09/25/16 09/26/16 00:59 00:59 00:59 Intake Total 2401 350 Output Total 1040 Balance 1361 350 Weight 97.6 kg 97.6 kg General appearance: PRESENT: no acute distress, well-developed, well-nourished Head exam: PRESENT: atraumatic, normocephalic Eye exam: PRESENT: conjunctiva pink, EOMI, PERRLA. ABSENT: scleral icterus Ear exam: PRESENT: normal external ear exam Mouth exam: PRESENT: moist, tongue midline Neck exam: ABSENT: carotid bruit, JVD, lymphadenopathy, thyromegaly Respiratory exam: PRESENT: clear to auscultation cher. ABSENT: rales, rhonchi, wheezes Cardiovascular exam: PRESENT: RRR. ABSENT: diastolic murmur, rubs, systolic murmur Pulses: PRESENT: normal dorsalis pedis pul Vascular exam: PRESENT: normal capillary refill GI/Abdominal exam: PRESENT: normal bowel sounds, soft. ABSENT: distended, guarding, mass, organolmegaly, rebound, tenderness Rectal exam: PRESENT: deferred Extremities exam: PRESENT: full ROM. ABSENT: calf tenderness, clubbing, pedal edema Neurological exam: PRESENT: alert, awake, oriented to person, oriented to place , oriented to time, oriented to situation, CN II-XII grossly intact. ABSENT: motor sensory deficit Psychiatric exam: PRESENT: appropriate affect, normal mood. ABSENT: homicidal ideation, suicidal ideation Skin exam: PRESENT: dry, intact, warm. ABSENT: cyanosis, rash Results Laboratory Results: 09/24/16 07:02 09/24/16 07:02 Troponin I 0.029 Impressions: Chest X-Ray 09/23/16 00:00 IMPRESSION: NO ACUTE RADIOGRAPHIC FINDING IN THE CHEST. NO SIGNIFICANT CHANGE FROM PRIOR STUDY. Head CT 09/23/16 00:00 IMPRESSION: NORMAL BRAIN CT WITHOUT CONTRAST. Cervical Spine MRI 09/24/16 00:00 IMPRESSION: Abnormal marrow signal worrisome for myeloproliferative disease Normal cervical spinal cord. No cord compression or edema/myelomalacia Head MRI 09/24/16 09:31 IMPRESSION: Multiple white matter lesions in the bilateral cerebellar hemispheres, mid honey, deep cerebral white matter structures with increased FLAIR/T2 signal. No altered diffusion or contrast enhancement. Findings could represent chronic small vessel disease or paraneoplastic syndrome Carotid Doppler Study 09/25/16 00:00 IMPRESSION: NO HEMODYNAMICALLY SIGNIFICANT STENOSIS. Assessment & Plan - Diagnosis (1) Acute encephalopathy Is this a current diagnosis for this admission?: YesPlan: Has resolved Acute encephalopathy was likely secondary to TIA (2) Leukocytosis Qualifiers: Leukocytosis type: unspecified Qualified Code(s): D72.829 - Elevated white blood cell count, unspecified Is this a current diagnosis for this admission?: Yes (3) Tongue swelling Is this a current diagnosis for this admission?: Yes (4) Weakness of both lower extremities Is this a current diagnosis for this admission?: Yes (5) Hypertension Is this a current diagnosis for this admission?: YesPlan: Accelerated hypertension We'll monitor the patient overnight Intermittent doses of hydralazine and labetalol will be given if blood pressure is more than 160/100 (6) DVT prophylaxis Is this a current diagnosis for this admission?: Yes (7) Full code status Is this a current diagnosis for this admission?: Yes (8) Chronic systolic CHF (congestive heart failure) Is this a current diagnosis for this admission?: YesPlan: EF of 45% Reevaluate patient's management Initiated metoprolol ramipril aspirin and Lipitor - Time Time Spent with patient: We will reevaluate patient in a.m. for discharge Patient did pass physical therapy evaluation and has no motor deficits Time Spent with patient: 25-34 minutes
[2016-09-25] MEDS ORDERED: LABETALOL HCL INJ 20 MG/4 ML DISP.SYRIN IV PRN (17:47)
[2016-09-25] MEDS: ENOXAPARIN SODIUM INJ 40 MG/0.4 ML DISP.SYRIN SUBCUT SCH (21:56)
[2016-09-25 22:36] LABS: HSV I DNA Negative (Negative)
[2016-09-26] MEDS: HYDRALAZINE HCL INJ/PF 20 MG/1 ML SDV IV PRN ×2 (01:11→05:48)
[2016-09-26] MEDS: CLINDAMYCIN HCL 150 MG CAPSULE PO SCH (05:49)
[2016-09-26] MEDS: RAMIPRIL 10 MG CAPSULE PO SCH (05:50)
[2016-09-26] MEDS: METOPROLOL TARTRATE 50 MG TABLET PO SCH (05:50)
[2016-09-26] MEDS: NYSTATIN/DEXAMETH/DIPHEN SUSP 120 ML PO SCH (09:02)
[2016-09-26] MEDS: ASPIRIN 325 MG TABLET, ENT COATED PO SCH (09:02)
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
[2016-09-26 10:48] LABS: HEMATOCRIT 41.7 % (37.9-51.0); HEMOGLOBIN 13.7 g/dL (13.5-17.0); HGB HCT DIFFERENCE -0.6; MEAN CORPUSCULAR HEMOGLOBIN 29.1 pg (27.0-33.4); MEAN CORPUSCULAR HGB CONC 32.8 g/dL (32.0-36.0); MEAN CORPUSCULAR VOLUME 89 fl (80-97); RED BLOOD COUNT 4.69 10^6/uL (4.35-5.55); RED CELL DISTRIBUTION WIDTH 14.7 % (11.5-14.0); WHITE BLOOD COUNT 28.6 10^3/uL (4.0-10.5)
[2016-09-26 11:03] LABS: ANION GAP 9 (5-19); BLOOD UREA NITROGEN 26 mg/dL (7-20); CALCIUM 9.8 mg/dL (8.4-10.2); CARBON DIOXIDE 29 mmol/L (22-30); CHLORIDE 102 mmol/L (98-107); CREATININE RESULT 1.19 mg/dL (0.52-1.25); GLUCOSE 97 mg/dL (75-110); POTASSIUM 4.5 mmol/L (3.6-5.0); SODIUM 139.8 mmol/L (137-145)
[2016-09-26 11:21] LABS: BASOPHILS % (MANUAL) 0 % (0-2); EOSINOPHILS % (MANUAL) 0 % (0-6); LYMPHOCYTES % (MANUAL) 14 % (13-45); TOTAL CELLS COUNTED 100
[2016-09-26 11:23] LABS: TOXIC GRANULATION SLIGHT
[2016-09-26 11:24] LABS: ANISOCYTOSIS SLIGHT
[2016-09-26 11:26] LABS: SMUDGE CELLS PRESENT
[2016-09-26 12:43] VITALS: BP 122/61
--- NOTE | 2016-09-27 10:08 | EEG PRO FEE REPORT ---
EEG INTERPRETATION PATIENT NAME: FARZANEH MANN 66 YR OLD ROOM#: [id number] ORDER#: [id number] DATE OF STUDY: 09/24/2016 : 1950 REFERRING MD: Gary Helm MD DIAGNOSIS: Seizures MEDICATIONS: Not listed REPORT A 16 channel recording EEG recording with channel of EKG seen during wakefulness, photic stimulation, and early stages of sleep. The background activity is 7.5-8 cycles per second, well formed and reactive alpha best seen in the posterior electrodes. Beta 18-22 cycles per second, intermittent, nonlocalized or sustained slower forms seen. Photic stimulation did not alter the tracing significantly. In the early stages of sleep, more generalized slowing is seen. IMPRESSION This EEG contains intermittent generalized slowing. Could be from a variety of causes such as encephalopathy, sleepiness, drowsiness medication. However no epileptiform discharges seen. INTERPRETING PHYSICIAN: TEJAS HADDAD M.D. /: ТАТЬЯНА TT: [id number] ID: [id number] /: [id number] TD: [id number] JOB: [id number] cc:Jose COLLINS M.D. >
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
== END 2016-09-26 12:46 | disposition home or self-care (01) | DRG 69 ==
LOC: ER 17:26 → UNDOADMIN 09-24 01:47 → EH 09-24 01:47 → EEVIPCON 09-24 01:51 → EH 09-24 01:51 → 3W 09-24 04:24 → ICU 09-24 06:55 → 3S 09-25 00:15
PROVIDERS: ADMIT Family Medicine; ATTEND Family Medicine
PROC: 009U3ZX Drainage of Spinal Canal, Percutaneous Approach, Diagnostic (ICD-10-PCS; principal; 2016-09-23)
DX: G45.9 Transient cerebral ischemic attack, unspecified (principal); G93.40 Encephalopathy, unspecified; I50.22 Chronic systolic (congestive) heart failure; R41.0 Disorientation, unspecified; E11.9 Type 2 diabetes mellitus without complications; F17.210 Nicotine dependence, cigarettes, uncomplicated; R20.2 Paresthesia of skin; D72.829 Elevated white blood cell count, unspecified; K14.8 Other diseases of tongue; M62.81 Muscle weakness (generalized); I11.0 Hypertensive heart disease with heart failure; Z87.820 Personal history of traumatic brain injury
CPT/HCPCS: 36415; 70450; 70553; 71010; 72141; 80048; 80061; 80076; 80307; 81001; 82550; 82553; 82784; 82945; 82962; 83615; 83735; 83916; 84157; 84443; 84484; 85025; 85610; 85652; 85730; 86140; 87040; 87070; 87086; 87205; 87210; 87252; 87529; 88184; 88185; 89050; 93005; 93010; 93306; 93880; 95819; 96374; 96375; 99291; A9577; J0133; J0360; J1885; J2060; J2405; J3490; J7030; J7050

== ENCOUNTER 2016-12-13 11:28 | Inpatient (IN) | payer MEDICAID, MEDICARE ==
[2016-12-13] MEDS ORDERED: KETOROLAC TROMETHAMINE INJ/PF 30 MG/1 ML SDV IV ONE (12:05)
[2016-12-13] MEDS ORDERED: METOCLOPRAMIDE HCL INJ/PF 10 MG/2 ML SDV IV ONE (12:05)
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
[2016-12-13 12:19] LABS: HEMATOCRIT 47.4 % (37.9-51.0); HEMOGLOBIN 15.6 g/dL (13.5-17.0); HGB HCT DIFFERENCE -0.6; MEAN CORPUSCULAR HEMOGLOBIN 29.3 pg (27.0-33.4); MEAN CORPUSCULAR HGB CONC 32.8 g/dL (32.0-36.0); MEAN CORPUSCULAR VOLUME 89 fl (80-97); RED BLOOD COUNT 5.31 10^6/uL (4.35-5.55); RED CELL DISTRIBUTION WIDTH 14.2 % (11.5-14.0); WHITE BLOOD COUNT 24.9 10^3/uL (4.0-10.5)
[2016-12-13] MEDS: NORMAL SALINE 1000 ML 1,000 ML IV PRN ×2 (12:31→13:12)
--- NOTE | 2016-12-13 12:35 | RADIOLOGY REPORT (SQ) ---
EXAM DESCRIPTION: CHEST PA/LAT COMPLETED DATE/TIME: 12/13/2016 12:25 pm REASON FOR STUDY: db COMPARISON: 09/23/2016 EXAM PARAMETERS: NUMBER OF VIEWS: two views TECHNIQUE: Digital Frontal and Lateral radiographic views of the chest acquired. RADIATION DOSE: NA LIMITATIONS: none FINDINGS: LUNGS AND PLEURA: Subsegmental airspace disease left lower lobe. No large effusions. MEDIASTINUM AND HILAR STRUCTURES: No masses or contour abnormalities. HEART AND VASCULAR STRUCTURES: Heart normal size. No evidence for failure. BONES: No acute findings. HARDWARE: None in the chest. OTHER: No other significant finding. IMPRESSION: Left lower lobe pneumonia. TECHNICAL DOCUMENTATION: JOB ID: [id number] [employer]- All Rights Reserved
[2016-12-13 12:36] LABS: ALANINE AMINOTRANSFERASE 27 U/L (21-72); ALBUMIN 4.4 g/dL (3.5-5.0); ALKALINE PHOSPHATASE 92 U/L (38-126); ANION GAP 12 (5-19); ASPARTATE AMINO TRANSFERASE 23 U/L (17-59); BILIRUBIN,DIRECT 0.3 mg/dL (0.0-0.4); BILIRUBIN,TOTAL 0.8 mg/dL (0.2-1.3); BLOOD UREA NITROGEN 30 mg/dL (7-20); CALCIUM 10.1 mg/dL (8.4-10.2); CARBON DIOXIDE 26 mmol/L (22-30); CHLORIDE 102 mmol/L (98-107); CREATINE KINASE 42 U/L (55-170); CREATININE RESULT 0.94 mg/dL (0.52-1.25); GLUCOSE 127 mg/dL (75-110); POTASSIUM 4.5 mmol/L (3.6-5.0); SODIUM 140.1 mmol/L (137-145); TOTAL PROTEIN 8.3 g/dL (6.3-8.2)
[2016-12-13] MEDS ORDERED: LEVOFLOXACIN 750 MG/D5W RTU 150 ML IV ONE (12:41)
[2016-12-13 12:48] LABS: CREATINE KINASE MB 0.78 ng/mL (<4.55); TROPONIN I 0.014 ng/mL
[2016-12-13 12:53] LABS: BASOPHILS % (MANUAL) 0 % (0-2); EOSINOPHILS % (MANUAL) 2 % (0-6); LYMPHOCYTES % (MANUAL) 51 % (13-45); TOTAL CELLS COUNTED 100
[2016-12-13 12:55] LABS: ANISOCYTOSIS SLIGHT; OVALOCYTES SLIGHT; POIKILOCYTOSIS SLIGHT
[2016-12-13 12:57] LABS: SMUDGE CELLS PRESENT
[2016-12-13] MEDS ORDERED: BENZONATATE 100 MG CAPSULE PO ONE (12:58)
[2016-12-13 13:37] LABS: APPEARANCE,URINE SLIGHTLY-CLOUDY; BILIRUBIN,URINE NEGATIVE (NEGATIVE); GLUCOSE, URINE 50 mg/dL (NEGATIVE); KETONES,URINE NEGATIVE (NEGATIVE); LEUKOCYTE ESTERASE,URINE NEGATIVE (NEGATIVE); NITRITE,URINE NEGATIVE (NEGATIVE); PROTEIN,URINE >=500 mg/dL (NEGATIVE); URINE SPECIFIC GRAVITY 1.027; UROBILINOGEN,URINE NEGATIVE mg/dL (<2.0)
[2016-12-13] MEDS ORDERED: MORPHINE SULFATE 10 MG/ML INJ IV ONE (13:53)
[2016-12-13] MEDS ORDERED: CLONIDINE HCL 0.1 MG TABLET PO ONE (13:53)
[2016-12-13] MEDS ORDERED: ONDANSETRON HCL INJ/PF 4 MG/2 ML SDV IV ONE (13:53)
[2016-12-13] MEDS ORDERED: ALBUTEROL SULFATE 0.083% NEB 2.5 MG/3 ML AMPUL NEB ONE (14:09)
--- NOTE | 2016-12-13 14:44 | RADIOLOGY REPORT (SQ) ---
EXAM DESCRIPTION: CT HEAD WITHOUT COMPLETED DATE/TIME: 12/13/2016 2:33 pm REASON FOR STUDY: headache COMPARISON: None. TECHNIQUE: Axial images acquired through the brain without intravenous contrast. Images reviewed wi th bone, brain and subdural windows. Images stored on PACS. All CT scanners at this facility use dose modulation, iterative reconstruction, and/or weight based d osing when appropriate to reduce radiation dose to as low as reasonably achievable (ALARA). [facility]: Dose Right [facility]: CareDose [facility]: Dose Right [facility]: Teradose 4D [facility]: [place] RADIATION DOSE: 64.61 mGy. LIMITATIONS: None. FINDINGS: VENTRICLES: Normal size and contour. CEREBRUM: No masses. No hemorrhage. No midline shift. Normal alvarez/white matter differentiation. N o evidence for acute infarction. CEREBELLUM: No masses. No hemorrhage. No alteration of density. No evidence for acute infarction. EXTRAAXIAL SPACES: No fluid collections. No masses. ORBITS AND GLOBE: No intra- or extraconal masses. Normal contour of globe without masses. CALVARIUM: No fracture. PARANASAL SINUSES: Mild mucoperiosteal thickening is seen in ethmoid air cells. SOFT TISSUES: No mass or hematoma. OTHER: No other significant finding. IMPRESSION: Mild ethmoid sinus disease. No acute intracranial pathology. TECHNICAL DOCUMENTATION: JOB ID: [id number] Quality ID # [id number]: Final reports with documentation of one or more dose reduction techniques (e.g., Au tomated exposure control, adjustment of the mA and/or kV according to patient size, use of iterative reconstruction technique) 2010 [employer]- All Rights Reserved
[2016-12-13] MEDS ORDERED: ALBUTEROL SULFATE 0.083% NEB 2.5 MG/3 ML AMPUL NEB PRN (16:10)
[2016-12-13] MEDS ORDERED: ACETAMINOPHEN 325 MG TABLET PO PRN (16:10)
[2016-12-13] MEDS ORDERED: NORMAL SALINE 1000 ML 1,000 ML IV PRN (16:10)
[2016-12-13] MEDS ORDERED: GUAIFENESIN SYRP 200 MG/10 ML UDC PO PRN (16:10)
[2016-12-13] MEDS ORDERED: DEXTROSE 50%-WATER 25 GM/50 ML DISP.SYRIN IV PRN ×2 (16:17)
[2016-12-13] MEDS ORDERED: GLUCAGON,HUMAN RECOMB 1 MG INJ IM PRN (16:17)
[2016-12-13] MEDS ORDERED: DEXTROSE 40% GEL 15 GM TUBE PO PRN ×2 (16:17)
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
--- NOTE | 2016-12-13 17:07 | EKG REPORT ---
SEVERITY:- NORMAL ECG - SINUS RHYTHM : Confirmed by: Samanta Sneed 13-Dec-2016 17:06:40
[2016-12-13] MEDS: LANSOPRAZOLE 30 MG TAB.RAP.DR PO SCH (17:19)
[2016-12-13] MEDS: INSULIN REG, HUMAN 100 UNIT/ML 3 ML VIAL (PYX) SUBCUT PRN (17:20)
[2016-12-13] MEDS: METHYLPREDNISOLONE INJ 125 MG/2 ML SDV IV SCH (17:25)
[2016-12-13] MEDS ORDERED: ENOXAPARIN SODIUM INJ 40 MG/0.4 ML DISP.SYRIN SUBCUT ONE (18:00)
[2016-12-13] MEDS ORDERED: ONDANSETRON HCL INJ/PF 4 MG/2 ML SDV IV PRN (18:40)
[2016-12-13] MEDS ORDERED: PROMETHAZINE HCL 25 MG SUPP.RECT PR PRN (19:30)
[2016-12-13] MEDS: IPRATROPIUM/ALBUTEROL 0.5-2.5 MG/3 ML AMPUL NEB SCH (20:20)
[2016-12-13] MEDS: METOPROLOL TARTRATE 50 MG TABLET PO SCH (21:48)
[2016-12-13] MEDS: CEFEPIME HCL 2 GM in DEXTROSE 5%-WATER 50 ML IV SCH (21:49)
[2016-12-13] MEDS: GUAIFENESIN 600 MG TABLET.SA PO SCH (21:49)
[2016-12-13] MEDS ORDERED: CEFEPIME 2 GM/D5W RTU 2 GM/50 ML RTUPB IV SCH (22:00)
[2016-12-14] MEDS: METHYLPREDNISOLONE INJ 125 MG/2 ML SDV IV SCH ×3 (01:32→17:39)
[2016-12-14] MEDS: IPRATROPIUM/ALBUTEROL 0.5-2.5 MG/3 ML AMPUL NEB SCH ×4 (03:00→19:28)
[2016-12-14 05:40] LABS: HEMATOCRIT 42.3 % (37.9-51.0); HEMOGLOBIN 13.8 g/dL (13.5-17.0); HGB HCT DIFFERENCE -0.9; MEAN CORPUSCULAR HEMOGLOBIN 29.7 pg (27.0-33.4); MEAN CORPUSCULAR HGB CONC 32.7 g/dL (32.0-36.0); MEAN CORPUSCULAR VOLUME 91 fl (80-97); RED BLOOD COUNT 4.66 10^6/uL (4.35-5.55); RED CELL DISTRIBUTION WIDTH 14.1 % (11.5-14.0); WHITE BLOOD COUNT 22.5 10^3/uL (4.0-10.5)
[2016-12-14 05:52] LABS: BASOPHILS % (MANUAL) 0 % (0-2); EOSINOPHILS % (MANUAL) 0 % (0-6); LYMPHOCYTES % (MANUAL) 39 % (13-45); TOTAL CELLS COUNTED 100
[2016-12-14 05:54] LABS: ANISOCYTOSIS SLIGHT; TOXIC GRANULATION 1+
[2016-12-14] MEDS: LANSOPRAZOLE 30 MG TAB.RAP.DR PO SCH ×2 (06:09→16:08)
[2016-12-14] MEDS ORDERED: ENOXAPARIN SODIUM INJ 40 MG/0.4 ML DISP.SYRIN SUBCUT SCH (08:00)
[2016-12-14] MEDS: INSULIN REG, HUMAN 100 UNIT/ML 3 ML VIAL (PYX) SUBCUT PRN ×4 (08:51→21:53)
[2016-12-14] MEDS: GUAIFENESIN 600 MG TABLET.SA PO SCH ×2 (09:48→21:53)
[2016-12-14] MEDS: METOPROLOL TARTRATE 50 MG TABLET PO SCH ×2 (09:48→21:53)
[2016-12-14] MEDS: CEFEPIME HCL 2 GM in DEXTROSE 5%-WATER 50 ML IV SCH ×2 (09:48→21:53)
[2016-12-14] MEDS: LEVOFLOXACIN 750 MG/D5W RTU 150 ML IV SCH (09:49)
[2016-12-14] MEDS ORDERED: NORMAL SALINE 1000 ML 1,000 ML IV PRN (10:49)
--- NOTE | 2016-12-14 10:53 | PDOC PROGRESS REPORT ---
Subjective Progress Note for:: 12/14/16 Subjective:: Patient feels better this morning. Coughing is less but still present. Wheezing is much better. Still with shortness of breath on exertion but better. There is no temperature spikes nor diarrhea. There is no chest pain reported. No hemoptysis. Physical Exam Vital Signs: Temp Pulse Resp BP Pulse Ox 97.3 F 80 18 141/66 H 93 12/14/16 07:16 12/14/16 08:28 12/14/16 08:28 12/14/16 07:16 12/14/16 08:28 Intake & Output 12/13/16 12/14/16 12/15/16 06:59 06:59 06:59 Intake Total 1500 Output Total 700 Balance 800 Weight 106 kg General appearance: PRESENT: no acute distress, cooperative Head exam: PRESENT: normocephalic Eye exam: PRESENT: EOMI Mouth exam: PRESENT: moist, neck supple Neck exam: ABSENT: JVD Respiratory exam: PRESENT: rhonchi - Bilateral, few. ABSENT: wheezes Cardiovascular exam: PRESENT: RRR. ABSENT: gallop GI/Abdominal exam: PRESENT: soft. ABSENT: distended - Obese, tenderness Extremities exam: ABSENT: pedal edema Neurological exam: PRESENT: alert, awake, oriented to situation Skin exam: PRESENT: dry, warm. ABSENT: cyanosis Results Laboratory Results: 12/14/16 04:33 12/14/16 04:33 WBC 22.5 H RBC 4.66 Hgb 13.8 Hct 42.3 MCV 91 MCH 29.7 MCHC 32.7 RDW 14.1 H Plt Count 157 Seg Neutrophils % Not Reportable Lymphocytes % Not Reportable Monocytes % Not Reportable Eosinophils % Not Reportable Basophils % Not Reportable Absolute Neutrophils Not Reportable Absolute Lymphocytes Not Reportable Absolute Monocytes Not Reportable Absolute Eosinophils Not Reportable Absolute Basophils Not Reportable Impressions: Chest X-Ray 12/13/16 12:04 IMPRESSION: Left lower lobe pneumonia. Head CT 12/13/16 14:15 IMPRESSION: Mild ethmoid sinus disease. No acute intracranial pathology. Assessment & Plan - Diagnosis (1) COPD (chronic obstructive pulmonary disease) Qualifiers: COPD type: COPD with acute exacerbation Qualified Code(s): J44.1 - Chronic obstructive pulmonary disease with (acute) exacerbation Is this a current diagnosis for this admission?: Yes (2) Pneumonia Qualifiers: Pneumonia type: due to unspecified organism Laterality: left Lung location: lower lobe of lung Qualified Code(s): J18.1 - Lobar pneumonia, unspecified organism Is this a current diagnosis for this admission?: Yes (3) Hypertension Qualifiers: Hypertension type: essential hypertension Qualified Code(s): I10 - Essential (primary) hypertension Is this a current diagnosis for this admission?: Yes (4) Diabetes mellitus type 2 in obese Is this a current diagnosis for this admission?: Yes (5) Abnormal urinalysis Is this a current diagnosis for this admission?: Yes - Time Time Spent with patient: 25-34 minutes - Plan Summary Plan Summary: We are going to continue current antibiotics. Continue steroids and bronchodilators. Out of bed today and increase activity. Follow cultures. Continue supportive care. We will give nicotine patch and decrease intravenous fluids. Continue supplemental oxygen.
[2016-12-15] MEDS: METHYLPREDNISOLONE INJ 125 MG/2 ML SDV IV SCH (01:18)
[2016-12-15] MEDS: IPRATROPIUM/ALBUTEROL 0.5-2.5 MG/3 ML AMPUL NEB SCH ×2 (02:31→08:10)
[2016-12-15] MEDS: LANSOPRAZOLE 30 MG TAB.RAP.DR PO SCH ×2 (06:10→17:22)
[2016-12-15] MEDS: INSULIN REG, HUMAN 100 UNIT/ML 3 ML VIAL (PYX) SUBCUT PRN ×4 (07:58→23:23)
[2016-12-15] MEDS ORDERED: LEVALBUTEROL HCL NEB 1.25 MG/3 ML AMPUL NEB PRN ×2 (08:39→12:24)
--- NOTE | 2016-12-15 09:00 | PDOC PROGRESS REPORT ---
Subjective Progress Note for:: 12/15/16 Subjective:: Continues to feel better. Shortness of breath is less. Denies any wheezing at all. Woke up this morning however because of a lot of coughing. Physical Exam Vital Signs: Temp Pulse Resp BP Pulse Ox 97.4 F 82 20 133/73 H 97 12/15/16 07:34 12/15/16 07:34 12/15/16 07:34 12/15/16 07:34 12/15/16 07:34 Intake & Output 12/14/16 12/15/16 12/16/16 06:59 06:59 06:59 Intake Total 1500 3946 Output Total 700 Balance 800 3946 Weight 106 kg 106 kg General appearance: PRESENT: no acute distress, obese Head exam: PRESENT: normocephalic Eye exam: PRESENT: EOMI Mouth exam: PRESENT: moist, neck supple Neck exam: ABSENT: JVD Respiratory exam: PRESENT: clear to auscultation cher. ABSENT: rhonchi, wheezes Cardiovascular exam: PRESENT: RRR. ABSENT: gallop GI/Abdominal exam: PRESENT: soft. ABSENT: distended, tenderness Extremities exam: ABSENT: pedal edema Neurological exam: PRESENT: alert, awake, oriented to situation Skin exam: PRESENT: dry, warm. ABSENT: cyanosis Results Laboratory Results: 12/14/16 04:33 Impressions: Chest X-Ray 12/13/16 12:04 IMPRESSION: Left lower lobe pneumonia. Head CT 12/13/16 14:15 IMPRESSION: Mild ethmoid sinus disease. No acute intracranial pathology. Assessment & Plan - Diagnosis (1) COPD (chronic obstructive pulmonary disease) Qualifiers: COPD type: COPD with acute exacerbation Qualified Code(s): J44.1 - Chronic obstructive pulmonary disease with (acute) exacerbation Is this a current diagnosis for this admission?: Yes (2) Pneumonia Qualifiers: Pneumonia type: due to unspecified organism Laterality: left Lung location: lower lobe of lung Qualified Code(s): J18.1 - Lobar pneumonia, unspecified organism Is this a current diagnosis for this admission?: Yes (3) Hypertension Qualifiers: Hypertension type: essential hypertension Qualified Code(s): I10 - Essential (primary) hypertension Is this a current diagnosis for this admission?: Yes (4) Diabetes mellitus type 2 in obese Is this a current diagnosis for this admission?: Yes (5) Abnormal urinalysis Is this a current diagnosis for this admission?: Yes - Time Time Spent with patient: 15-24 minutes - Plan Summary Plan Summary: Continue current antibiotics. Switch to oral steroids and metered-dose inhalers. Continue as needed nebulizer. Increase activity. Humidified oxygen. Continue supportive care. May need to check home O2 requirement. Possible discharge in the morning.
[2016-12-15] MEDS: CEFEPIME HCL 2 GM in DEXTROSE 5%-WATER 50 ML IV SCH ×2 (09:22→23:25)
[2016-12-15] MEDS: GUAIFENESIN 600 MG TABLET.SA PO SCH ×2 (09:22→23:24)
[2016-12-15] MEDS: METOPROLOL TARTRATE 50 MG TABLET PO SCH ×2 (09:22→23:24)
[2016-12-15] MEDS: LEVOFLOXACIN 750 MG/D5W RTU 150 ML IV SCH (09:23)
[2016-12-15] MEDS: PREDNISONE 20 MG TABLET PO SCH (10:27)
[2016-12-15] MEDS ORDERED: IPRATROPIUM/ALBUTEROL 120 PUFF/4 GM MDI IH SCH (12:00)
[2016-12-15] MEDS: IPRATROPIUM/ALBUTEROL 120 PUFF/4 GM MDI IH SCH (21:00)
[2016-12-16] MEDS: IPRATROPIUM/ALBUTEROL 120 PUFF/4 GM MDI IH SCH ×4 (02:00→21:11)
[2016-12-16] MEDS: LANSOPRAZOLE 30 MG TAB.RAP.DR PO SCH ×2 (06:19→17:16)
[2016-12-16] MEDS: CEFEPIME HCL 2 GM in DEXTROSE 5%-WATER 50 ML IV SCH (09:25)
[2016-12-16] MEDS: METOPROLOL TARTRATE 50 MG TABLET PO SCH ×2 (09:25→21:12)
[2016-12-16] MEDS: GUAIFENESIN 600 MG TABLET.SA PO SCH ×2 (09:25→21:11)
[2016-12-16] MEDS: PREDNISONE 20 MG TABLET PO SCH (09:26)
[2016-12-16] MEDS: LEVOFLOXACIN 750 MG/D5W RTU 150 ML IV SCH (10:04)
--- NOTE | 2016-12-16 11:28 | PDOC PROGRESS REPORT ---
Subjective Progress Note for:: 12/16/16 Subjective:: Patient did not sleep well last night due to coughing. No reported temperature spikes, increasing wheezing or shortness of breath. Denies diarrhea chills nor fever. No chest pain at this time. Physical Exam Vital Signs: Temp Pulse Resp BP Pulse Ox 97.4 F 104 H 24 H 150/73 H 95 12/16/16 07:29 12/16/16 07:57 12/16/16 07:57 12/16/16 07:29 12/16/16 07:57 Intake & Output 12/15/16 12/16/16 12/17/16 06:59 06:59 06:59 Intake Total 3946 4295 Balance 3946 4295 Weight 106 kg 106 kg General appearance: PRESENT: no acute distress, obese Head exam: PRESENT: normocephalic Eye exam: PRESENT: EOMI Mouth exam: PRESENT: moist, neck supple Neck exam: ABSENT: JVD Respiratory exam: PRESENT: rhonchi - Scattered bilateral. ABSENT: wheezes Cardiovascular exam: PRESENT: RRR. ABSENT: gallop GI/Abdominal exam: PRESENT: normal bowel sounds, soft. ABSENT: distended - Obese, tenderness Extremities exam: ABSENT: pedal edema Neurological exam: PRESENT: alert, awake, oriented to situation Skin exam: PRESENT: dry, warm. ABSENT: cyanosis Results Laboratory Results: 12/14/16 04:33 12/14/16 18:52 Clean Catch Midstream Urine Culture - Final NO GROWTH 2 DAYS Impressions: Chest X-Ray 12/13/16 12:04 IMPRESSION: Left lower lobe pneumonia. Head CT 12/13/16 14:15 IMPRESSION: Mild ethmoid sinus disease. No acute intracranial pathology. Assessment & Plan - Diagnosis (1) COPD (chronic obstructive pulmonary disease) Qualifiers: COPD type: COPD with acute exacerbation Qualified Code(s): J44.1 - Chronic obstructive pulmonary disease with (acute) exacerbation Is this a current diagnosis for this admission?: Yes (2) Pneumonia Qualifiers: Pneumonia type: due to unspecified organism Laterality: left Lung location: lower lobe of lung Qualified Code(s): J18.1 - Lobar pneumonia, unspecified organism Is this a current diagnosis for this admission?: Yes (3) Hypertension Qualifiers: Hypertension type: essential hypertension Qualified Code(s): I10 - Essential (primary) hypertension Is this a current diagnosis for this admission?: Yes (4) Diabetes mellitus type 2 in obese Is this a current diagnosis for this admission?: Yes (5) Abnormal urinalysis Is this a current diagnosis for this admission?: Yes - Time Time Spent with patient: 25-34 minutes - Plan Summary Plan Summary: We are going to discontinue intravenous fluids. Gave 1 dose of intravenous Lasix. Transition to oral antibiotic and steroids. Check room air O2 saturation in a.m. to evaluate home O2 requirement. Continue bronchodilators, he was shifted to metered-dose inhaler every 6 hours yesterday by respiratory service, we will increase to every 4 hours.
[2016-12-16] MEDS ORDERED: IPRATROPIUM/ALBUTEROL 120 PUFF/4 GM MDI IH SCH ×3 (11:30→14:00)
[2016-12-16] MEDS ORDERED: FUROSEMIDE INJ/PF 40 MG/4 ML SDV IV ONE (12:15)
[2016-12-16] MEDS: INSULIN REG, HUMAN 100 UNIT/ML 3 ML VIAL (PYX) SUBCUT PRN ×3 (12:24→21:30)
[2016-12-16] MEDS: LEVALBUTEROL HCL NEB 1.25 MG/3 ML AMPUL NEB PRN (21:44)
[2016-12-17] MEDS: IPRATROPIUM/ALBUTEROL 120 PUFF/4 GM MDI IH SCH ×6 (02:31→21:14)
[2016-12-17] MEDS: LEVALBUTEROL HCL NEB 1.25 MG/3 ML AMPUL NEB PRN (02:43)
[2016-12-17 04:52] LABS: HEMATOCRIT 41.8 % (37.9-51.0); HEMOGLOBIN 13.6 g/dL (13.5-17.0); MEAN CORPUSCULAR HEMOGLOBIN 29.3 pg (27.0-33.4); MEAN CORPUSCULAR HGB CONC 32.6 g/dL (32.0-36.0); MEAN CORPUSCULAR VOLUME 90 fl (80-97); RED BLOOD COUNT 4.64 10^6/uL (4.35-5.55); RED CELL DISTRIBUTION WIDTH 14.2 % (11.5-14.0); WHITE BLOOD COUNT 25.8 10^3/uL (4.0-10.5)
[2016-12-17 05:03] LABS: ANION GAP 10 (5-19); BLOOD UREA NITROGEN 43 mg/dL (7-20); CARBON DIOXIDE 30 mmol/L (22-30); CHLORIDE 99 mmol/L (98-107); CREATININE RESULT 1.13 mg/dL (0.52-1.25); GLUCOSE 171 mg/dL (75-110); POTASSIUM 4.6 mmol/L (3.6-5.0); SODIUM 139.3 mmol/L (137-145)
[2016-12-17] MEDS: LANSOPRAZOLE 30 MG TAB.RAP.DR PO SCH ×2 (05:52→17:08)
[2016-12-17] MEDS: LEVOFLOXACIN 750 MG TABLET PO SCH (10:33)
[2016-12-17] MEDS: METOPROLOL TARTRATE 50 MG TABLET PO SCH ×2 (10:34→21:13)
[2016-12-17] MEDS: PREDNISONE 20 MG TABLET PO SCH (10:35)
[2016-12-17] MEDS: GUAIFENESIN 600 MG TABLET.SA PO SCH ×2 (10:35→21:13)
--- NOTE | 2016-12-17 13:46 | PDOC PROGRESS REPORT ---
Subjective Progress Note for:: 12/17/16 Subjective:: Complains of some shortness of breath Physical Exam Vital Signs: Temp Pulse Resp BP Pulse Ox 97.4 F 71 20 120/98 H 99 12/17/16 08:00 12/17/16 08:00 12/17/16 08:00 12/17/16 08:00 12/17/16 08:00 Intake & Output 12/16/16 12/17/16 12/18/16 06:59 06:59 06:59 Intake Total 4295 2922 Balance 4295 2922 Weight 106 kg 106 kg General appearance: PRESENT: no acute distress Eye exam: PRESENT: conjunctiva pink. ABSENT: scleral icterus Mouth exam: PRESENT: moist, tongue midline Neck exam: ABSENT: JVD Respiratory exam: PRESENT: wheezes - Left-sided wheezes. ABSENT: rales, rhonchi Cardiovascular exam: PRESENT: RRR. ABSENT: diastolic murmur, rubs, systolic murmur GI/Abdominal exam: PRESENT: normal bowel sounds, soft. ABSENT: distended, guarding, mass, organolmegaly, rebound, tenderness Extremities exam: ABSENT: calf tenderness, clubbing, pedal edema Neurological exam: PRESENT: alert, awake, oriented to person, oriented to place , oriented to time, oriented to situation, CN II-XII grossly intact. ABSENT: motor sensory deficit Psychiatric exam: PRESENT: appropriate affect Skin exam: PRESENT: dry, intact, warm. ABSENT: cyanosis, rash Results Laboratory Results: 12/17/16 04:23 12/17/16 04:23 12/17/16 12/17/16 04:23 04:23 WBC 25.8 H RBC 4.64 Hgb 13.6 Hct 41.8 MCV 90 MCH 29.3 MCHC 32.6 RDW 14.2 H Plt Count 133 L Sodium 139.3 Potassium 4.6 Chloride 99 Carbon Dioxide 30 Anion Gap 10 BUN 43 H Creatinine 1.13 Est GFR ( Amer) > 60 Est GFR (Non-Af Amer) > 60 Glucose 171 H Calcium 10.0 12/14/16 18:52 Clean Catch Midstream Urine Culture - Final NO GROWTH 2 DAYS Impressions: Chest X-Ray 12/13/16 12:04 IMPRESSION: Left lower lobe pneumonia. Head CT 12/13/16 14:15 IMPRESSION: Mild ethmoid sinus disease. No acute intracranial pathology. Assessment & Plan - Diagnosis (1) COPD (chronic obstructive pulmonary disease) Qualifiers: COPD type: COPD with acute exacerbation Qualified Code(s): J44.1 - Chronic obstructive pulmonary disease with (acute) exacerbation Is this a current diagnosis for this admission?: YesPlan: Still has some expiratory wheezes. Was just switched to prednisone. Will monitor overnight and if he does not worsen we can hopefully discharge home tomorrow (2) Pneumonia Qualifiers: Pneumonia type: due to unspecified organism Laterality: left Lung location: lower lobe of lung Qualified Code(s): J18.1 - Lobar pneumonia, unspecified organism Is this a current diagnosis for this admission?: YesPlan: Cultures have all been negative. Continue with Levaquin. (3) Chronic systolic CHF (congestive heart failure) Is this a current diagnosis for this admission?: YesPlan: Patient appears to be euvolemic. (4) Hypertension Qualifiers: Hypertension type: essential hypertension Qualified Code(s): I10 - Essential (primary) hypertension Is this a current diagnosis for this admission?: YesPlan: Pressure is under good control. (5) Diabetes mellitus type 2 in obese Is this a current diagnosis for this admission?: YesPlan: Continue with sliding scale insulin. - Time Time Spent with patient: 25-34 minutes - Inpatient Certification Medical Necessity: Need Close Monitoring Due to Risk of Patient Decompensation - Plan Summary Plan Summary: If he continues to improve we can hopefully discharge home tomorrow.
[2016-12-17] MEDS: INSULIN REG, HUMAN 100 UNIT/ML 3 ML VIAL (PYX) SUBCUT PRN ×2 (17:10→21:14)
[2016-12-18] MEDS: IPRATROPIUM/ALBUTEROL 120 PUFF/4 GM MDI IH SCH ×6 (01:59→22:49)
[2016-12-18] MEDS: LANSOPRAZOLE 30 MG TAB.RAP.DR PO SCH ×2 (05:12→18:35)
[2016-12-18 05:20] LABS: ANION GAP 8 (5-19); BLOOD UREA NITROGEN 39 mg/dL (7-20); CALCIUM 9.7 mg/dL (8.4-10.2); CARBON DIOXIDE 27 mmol/L (22-30); CHLORIDE 103 mmol/L (98-107); CREATININE RESULT 0.97 mg/dL (0.52-1.25); GLUCOSE 129 mg/dL (75-110); POTASSIUM 4.5 mmol/L (3.6-5.0); SODIUM 138.4 mmol/L (137-145)
[2016-12-18 05:59] LABS: HEMATOCRIT 40.3 % (37.9-51.0); HEMOGLOBIN 13.2 g/dL (13.5-17.0); HGB HCT DIFFERENCE -0.7; MEAN CORPUSCULAR HEMOGLOBIN 29.3 pg (27.0-33.4); MEAN CORPUSCULAR HGB CONC 32.7 g/dL (32.0-36.0); MEAN CORPUSCULAR VOLUME 90 fl (80-97); RED CELL DISTRIBUTION WIDTH 14.1 % (11.5-14.0)
[2016-12-18 06:02] LABS: BAND NEUTROPHILS % (MANUAL) 2 % (3-5); BASOPHILS % (MANUAL) 0 % (0-2); EOSINOPHILS % (MANUAL) 0 % (0-6); LYMPHOCYTES % (MANUAL) 53 % (13-45); TOTAL CELLS COUNTED 100
[2016-12-18 06:03] LABS: RBC MORPHOLOGY COMMENT NORMO-CYTIC/CHROMIC; TOXIC GRANULATION SLIGHT
[2016-12-18] MEDS: METOPROLOL TARTRATE 50 MG TABLET PO SCH ×2 (10:03→22:48)
[2016-12-18] MEDS: LEVOFLOXACIN 750 MG TABLET PO SCH (10:03)
[2016-12-18] MEDS: PREDNISONE 20 MG TABLET PO SCH (10:04)
[2016-12-18] MEDS: GUAIFENESIN 600 MG TABLET.SA PO SCH ×2 (10:04→22:49)
[2016-12-18] MEDS ORDERED: HALOPERIDOL 2 MG TABLET PO ONE (11:00)
[2016-12-18] MEDS: LEVALBUTEROL HCL NEB 1.25 MG/3 ML AMPUL NEB PRN (13:05)
--- NOTE | 2016-12-18 14:00 | PDOC PROGRESS REPORT ---
Subjective Progress Note for:: 12/18/16 Subjective:: Complains of some shortness of breath. Also complains of anxiety. Physical Exam Vital Signs: Temp Pulse Resp BP Pulse Ox 97.3 F 86 18 160/92 H 94 12/18/16 11:20 12/18/16 13:05 12/18/16 13:05 12/18/16 11:20 12/18/16 13:05 Intake & Output 12/17/16 12/18/16 12/19/16 06:59 06:59 06:59 Intake Total 2922 2435 Balance 2922 2435 Weight 106 kg 106 kg General appearance: PRESENT: no acute distress Eye exam: PRESENT: conjunctiva pink. ABSENT: scleral icterus Mouth exam: PRESENT: moist, tongue midline Neck exam: ABSENT: carotid bruit, JVD, lymphadenopathy, thyromegaly Respiratory exam: PRESENT: clear to auscultation cher. ABSENT: rales, rhonchi, wheezes Cardiovascular exam: PRESENT: RRR. ABSENT: diastolic murmur, rubs, systolic murmur GI/Abdominal exam: PRESENT: normal bowel sounds, soft. ABSENT: distended, guarding, mass, organolmegaly, rebound, tenderness Extremities exam: ABSENT: calf tenderness, clubbing, pedal edema Neurological exam: PRESENT: alert, awake, oriented to person, oriented to place , oriented to time, oriented to situation, CN II-XII grossly intact. ABSENT: motor sensory deficit Psychiatric exam: PRESENT: appropriate affect Skin exam: PRESENT: dry, intact, warm. ABSENT: cyanosis, rash Results Laboratory Results: 12/18/16 04:19 12/18/16 04:19 12/18/16 12/18/16 04:19 04:19 WBC 26.0 H RBC 4.50 Hgb 13.2 L Hct 40.3 MCV 90 MCH 29.3 MCHC 32.7 RDW 14.1 H Plt Count 136 L Seg Neutrophils % Not Reportable Lymphocytes % Not Reportable Monocytes % Not Reportable Eosinophils % Not Reportable Basophils % Not Reportable Absolute Neutrophils Not Reportable Absolute Lymphocytes Not Reportable Absolute Monocytes Not Reportable Absolute Eosinophils Not Reportable Absolute Basophils Not Reportable Sodium 138.4 Potassium 4.5 Chloride 103 Carbon Dioxide 27 Anion Gap 8 BUN 39 H Creatinine 0.97 Est GFR ( Amer) > 60 Est GFR (Non-Af Amer) > 60 Glucose 129 H Calcium 9.7 Impressions: Chest X-Ray 12/13/16 12:04 IMPRESSION: Left lower lobe pneumonia. Head CT 12/13/16 14:15 IMPRESSION: Mild ethmoid sinus disease. No acute intracranial pathology. Assessment & Plan - Diagnosis (1) COPD (chronic obstructive pulmonary disease) Qualifiers: COPD type: COPD with acute exacerbation Qualified Code(s): J44.1 - Chronic obstructive pulmonary disease with (acute) exacerbation Is this a current diagnosis for this admission?: YesPlan: Still complains of shortness of breath but his wheezing has resolved. There is a large component of anxiety. Will start the patient on Haldol today and if he tolerates this with improvement we can discharge home today otherwise we will plan on discharge home tomorrow. (2) Pneumonia Qualifiers: Pneumonia type: due to unspecified organism Laterality: left Lung location: lower lobe of lung Qualified Code(s): J18.1 - Lobar pneumonia, unspecified organism Is this a current diagnosis for this admission?: YesPlan: Cultures have all been negative. Continue with Levaquin. The patient's white blood cell count remains elevated however he is on steroids. (3) Chronic systolic CHF (congestive heart failure) Is this a current diagnosis for this admission?: YesPlan: Patient appears to be euvolemic. (4) Hypertension Qualifiers: Hypertension type: essential hypertension Qualified Code(s): I10 - Essential (primary) hypertension Is this a current diagnosis for this admission?: YesPlan: Pressure is under good control. (5) Diabetes mellitus type 2 in obese Is this a current diagnosis for this admission?: YesPlan: Continue with sliding scale insulin. - Time Time Spent with patient: 25-34 minutes - Inpatient Certification Medical Necessity: Need Close Monitoring Due to Risk of Patient Decompensation
[2016-12-18] MEDS: INSULIN REG, HUMAN 100 UNIT/ML 3 ML VIAL (PYX) SUBCUT PRN ×2 (18:35→22:49)
[2016-12-18] MEDS: HALOPERIDOL 2 MG TABLET PO SCH (22:48)
[2016-12-19] MEDS: IPRATROPIUM/ALBUTEROL 120 PUFF/4 GM MDI IH SCH ×4 (03:43→15:27)
[2016-12-19 05:04] LABS: HEMATOCRIT 42.1 % (37.9-51.0); HEMOGLOBIN 13.9 g/dL (13.5-17.0); HGB HCT DIFFERENCE -0.4; MEAN CORPUSCULAR HEMOGLOBIN 29.7 pg (27.0-33.4); MEAN CORPUSCULAR VOLUME 90 fl (80-97); RED BLOOD COUNT 4.68 10^6/uL (4.35-5.55); RED CELL DISTRIBUTION WIDTH 14.1 % (11.5-14.0); WHITE BLOOD COUNT 26.9 10^3/uL (4.0-10.5)
[2016-12-19 05:43] LABS: BASOPHILS % (MANUAL) 0 % (0-2); EOSINOPHILS % (MANUAL) 0 % (0-6); LYMPHOCYTES % (MANUAL) 37 % (13-45); TOTAL CELLS COUNTED 100
[2016-12-19 05:44] LABS: TOXIC GRANULATION SLIGHT
[2016-12-19 05:45] LABS: ANISOCYTOSIS SLIGHT; TEAR DROP CELLS SLIGHT
[2016-12-19] MEDS: LANSOPRAZOLE 30 MG TAB.RAP.DR PO SCH (06:44)
[2016-12-19] MEDS: HALOPERIDOL 2 MG TABLET PO SCH (10:00)
[2016-12-19] MEDS: LEVOFLOXACIN 750 MG TABLET PO SCH (10:00)
[2016-12-19] MEDS: PREDNISONE 20 MG TABLET PO SCH (10:00)
[2016-12-19] MEDS: METOPROLOL TARTRATE 50 MG TABLET PO SCH (10:00)
[2016-12-19] MEDS: GUAIFENESIN 600 MG TABLET.SA PO SCH (10:00)
--- NOTE | 2016-12-19 12:00 | PDOC DISCHARGE SUMMARY ---
General - Admit/Disc Date/PCP Admission Date/Primary Care Provider: 12/13/16 16:11 Discharge Date: 12/19/16 - Discharge Diagnosis (1) COPD (chronic obstructive pulmonary disease) Is this a current diagnosis for this admission?: Yes (2) Pneumonia Is this a current diagnosis for this admission?: Yes (3) Chronic systolic CHF (congestive heart failure) Is this a current diagnosis for this admission?: Yes (4) Hypertension Is this a current diagnosis for this admission?: Yes (5) Diabetes mellitus type 2 in obese Is this a current diagnosis for this admission?: Yes (6) Anxiety Is this a current diagnosis for this admission?: YesSummary: started on Haldol 2 mg p.o. twice daily prn. (7) Leukocytosis Is this a current diagnosis for this admission?: YesSummary: Patient has been referred to Dr. Roth of hematology oncology 2 months ago but he has not yet seen her yet. I have recommended that the patient to follow-up with hematology in the next 2-3 weeks - Additional Information Resuscitation Status: Full Code Discharge Diet: Cardiac Discharge Activity: Activity As Tolerated Home Medications: Haloperidol [Haldol 2 mg Tablet] 2 mg PO Q12 PRN #60 tablet 12/19/16 Ipratropium/Albuterol Sulfate [Combivent Respimat 4 gm Mdi] 1 puff IH Q4 PRN # 120 aer.w.adap 12/19/16 Levofloxacin [Levaquin 750 mg Tablet] 750 mg PO DAILY #2 tablet 12/19/16 Metoprolol Tartrate [Lopressor 50 mg Tablet] 50 mg PO Q12 #60 tablet 12/19/16 Prednisone [Deltasone 20 mg Tablet] 10 mg PO DAILY #39 tablet 12/19/16 History of Present Illness History of Present Illness: FARZANEH MANN is a 66 year old male who is a chronic smoker and has history of diabetes and hypertension who presented with a one-month history of shortness of breath that has gotten progressively worse. Patient also has had wheezing. The patient had a cough productive of greenish phlegm along with low- grade fever. Patient was found to have a left lower lobe infiltrate and admitted for treatment of the pneumonia Hospital Course Hospital Course: 66-year-old gentleman with COPD who presented with fevers chills and was found to have a pneumonia. Patient was started on IV antibiotics and improved. Patient had negative cultures. Patient also had an acute COPD exacerbation treated with IV steroids. The patient also was very anxious and his respiratory status improved but he still was very concerned about this and because of his anxiety was started on as needed Haldol. He reported this helped greatly with his anxiety. The patient also was noted to have an elevated white blood cell count. This was noted back in September 2016 and that time he was referred to Dr. Chey Roth of hematology. He did not keep that outpatient appointment. I have instructed the patient that he needs to follow- up with hematology in the next 2-3 weeks. He is aware of the importance of this. Respiratory status was back to baseline and he is discharged home. Physical Exam Vital Signs: Temp Pulse Resp BP Pulse Ox 97.7 F 67 20 142/85 H 97 12/19/16 07:26 12/19/16 07:26 12/19/16 07:26 12/19/16 07:26 12/19/16 07:26 Intake & Output 12/18/16 12/19/16 12/20/16 06:59 06:59 06:59 Intake Total 2435 2371 Balance 2435 2371 Weight 106 kg 106 kg General appearance: PRESENT: no acute distress Eye exam: PRESENT: conjunctiva pink. ABSENT: scleral icterus Mouth exam: PRESENT: moist, tongue midline Neck exam: ABSENT: carotid bruit, JVD, lymphadenopathy, thyromegaly Respiratory exam: PRESENT: clear to auscultation cher. ABSENT: rales, rhonchi, wheezes Cardiovascular exam: PRESENT: RRR. ABSENT: diastolic murmur, rubs, systolic murmur GI/Abdominal exam: PRESENT: normal bowel sounds, soft. ABSENT: distended, guarding, mass, organolmegaly, rebound, tenderness Extremities exam: ABSENT: calf tenderness, clubbing, pedal edema Neurological exam: PRESENT: alert, awake, oriented to person, oriented to place , oriented to time, oriented to situation, CN II-XII grossly intact. ABSENT: motor sensory deficit Psychiatric exam: PRESENT: appropriate affect Skin exam: PRESENT: dry, intact, warm. ABSENT: cyanosis, rash Results Laboratory Results: 12/19/16 04:26 12/18/16 04:19 12/19/16 04:26 WBC 26.9 H RBC 4.68 Hgb 13.9 Hct 42.1 MCV 90 MCH 29.7 MCHC 33.0 RDW 14.1 H Plt Count 129 L Seg Neutrophils % Not Reportable Lymphocytes % Not Reportable Monocytes % Not Reportable Eosinophils % Not Reportable Basophils % Not Reportable Absolute Neutrophils Not Reportable Absolute Lymphocytes Not Reportable Absolute Monocytes Not Reportable Absolute Eosinophils Not Reportable Absolute Basophils Not Reportable Impressions: Chest X-Ray 12/13/16 12:04 IMPRESSION: Left lower lobe pneumonia. Head CT 12/13/16 14:15 IMPRESSION: Mild ethmoid sinus disease. No acute intracranial pathology. Qualifiers P[place]INT BEING DISCHARGED WITH ANY OF THE FOLLOWING DIAGNOSIS?: No Plan Discharge Plan: Patient is discharged to home. Will follow up with his primary care doctor in 2 weeks. He is instructed to follow-up with hematology oncology in 2-3 weeks. Time Spent: Greater than 30 Minutes
[2016-12-19 14:58] VITALS: BP 120/98
== END 2016-12-19 16:05 | disposition home or self-care (01) | DRG 190 ==
LOC: ER 11:28 → EEVIPCON 11:28 → EH 15:16 → UNDOADMIN 15:16 → EH 16:11 → 4N 18:24
PROVIDERS: ADMIT Internal Medicine; ATTEND Internal Medicine
PROC: 3E0F73Z Introduction of Anti-inflammatory into Respiratory Tract, Via Natural or Artificial Opening (ICD-10-PCS; principal; 2016-12-13)
DX: J44.0 Chronic obstructive pulmonary disease with (acute) lower respiratory infection (principal); J18.1 Lobar pneumonia, unspecified organism; I50.22 Chronic systolic (congestive) heart failure; I11.0 Hypertensive heart disease with heart failure; J44.1 Chronic obstructive pulmonary disease with (acute) exacerbation; F41.9 Anxiety disorder, unspecified; E11.9 Type 2 diabetes mellitus without complications; F17.210 Nicotine dependence, cigarettes, uncomplicated; E66.01 Morbid (severe) obesity due to excess calories; R82.90 Unspecified abnormal findings in urine; D72.829 Elevated white blood cell count, unspecified; Z68.34 Body mass index [BMI] 34.0-34.9, adult; Z90.49 Acquired absence of other specified parts of digestive tract; Z87.820 Personal history of traumatic brain injury; Z83.3 Family history of diabetes mellitus; Z82.49 Family history of ischemic heart disease and other diseases of the circulatory system; Z79.4 Long term (current) use of insulin
CPT/HCPCS: 36415; 70450; 71020; 80048; 80053; 81001; 82550; 82553; 82962; 83036; 83880; 84484; 85025; 85027; 87040; 87086; 93005; 93010; 94640; 96361; 96374; 96375; 99285; J0692; J1650; J1815; J1885; J1940; J1956; J2270; J2405; J2765; J2930; J3490; J7030; J7512; J7620